=== PATIENT | female | born 1945 | race Caucasian/White ===

== ENCOUNTER 2016-06-16 16:17 | Emergency (ER) | payer MEDICARE, OTHER ==
--- NOTE | 2016-06-16 16:34 | ERPHSYRPT ---
- History of Present Illness Time Seen by Provider: 06/16/16 16:32 Source: patient, family Exam Limitations: no limitations Physician History: c/o cough, chest congestion and fever since yesterday Timing/Duration: yesterday Associated Symptoms: cough, fever Allergies/Adverse Reactions: Penicillins Allergy (Verified 06/16/16 16:31) Home Medications: Carvedilol 6.25 mg [Coreg 6.25 MG] 6.25 mg PO BID 03/18/13 [History] Allopurinol 300 mg [Zyloprim 300 mg] 300 mg PO DAILY 06/11/16 [History] Amlodipine Besylate/Benazepril [Amlodipine-Benazepril 5-20 mg] 1 each PO DAILY 06/11/16 [History] Aspirin [Aspirin EC] 81 mg PO DAILY 06/11/16 [History] Furosemide 40 mg [Lasix 40 MG] 40 mg PO DAILY 06/11/16 [History] Hydrocodone Bit/Acetaminophen [[place] 7.5-325 Tablet] 1 each PO Q6H 06/11/16 [ History] Potassium Citrate/Citric Acid [Cytra-K Crystals Packet] 1 each PO QID 06/11/16 [ History] Hx Tetanus, Diphtheria Vaccination/Date Given: Yes Hx Influenza Vaccination/Date Given: No Hx Pneumococcal Vaccination/Date Given: No - Review of Systems Constitutional: Fever, No Chills Eyes: No Symptoms Ears, Nose, & Throat: No Symptoms Respiratory: Cough, No Dyspnea Cardiac: No Chest Pain, No Edema, No Syncope Abdominal/Gastrointestinal: No Abdominal Pain, No Nausea, No Vomiting, No Diarrhea Genitourinary Symptoms: No Dysuria Musculoskeletal: No Back Pain, No Neck Pain Skin: No Rash Neurological: No Dizziness, No Focal Weakness, No Sensory Changes Psychological: No Symptoms Endocrine: No Symptoms All Other Systems: Reviewed and Negative - Past Medical History Pertinent Past Medical History: Yes Neurological History: No Pertinent History ENT History: No Pertinent History Cardiac History: Myocardial Infarction ([place]) Respiratory History: CHF Endocrine Medical History: No Pertinent History Musculoskeletal History: Osteoarthritis GI Medical History: No Pertinent History History: Other Psycho-Social History: No Pertinent History Female Reproductive Disorders: No Pertinent History Other Medical History: KIDNEY STONES,UTI - Past Surgical History Past Surgical History: Yes Neuro Surgical History: No Pertinent History Cardiac: Cardiac Catheterization Respiratory: No Pertinent History Gastrointestinal: Appendectomy, Cholecystectomy Genitourinary: Other Musculoskeletal: Joint Replacement Female Surgical History: Tubal Ligation Other Surgical History: D &C, RIGHT KNEE REPLACEMENT, TONSILLECTOMY - Social History Smoking Status: Never smoker Exposure to second hand smoke: No Alcohol Use: None Drug Use: none Patient Lives Alone: No Significant Family History: heart disease, hypertension - Female History Hx Now: No - Nursing Vital Signs Nursing Vital Signs: Initial Vital Signs Temperature 98.4 F Temperature Source Oral Pulse Rate 83 Respiratory Rate 22 Blood Pressure [] 137/69 Pain Intensity 4 - Physical Exam General Appearance: no apparent distress, alert Eye Exam: PERRL/EOMI, eyes nml inspection Ears, Nose, Throat Exam: normal ENT inspection, TMs normal, pharynx normal, moist mucous membranes Neck Exam: normal inspection, non-tender, supple, full range of motion Respiratory Exam: rhonchi, wheezing, No respiratory distress Cardiovascular Exam: regular rate/rhythm, normal heart sounds, normal peripheral pulses Gastrointestinal/Abdomen Exam: soft, normal bowel sounds, No tenderness, No mass Back Exam: normal inspection, normal range of motion, No CVA tenderness, No vertebral tenderness Extremity Exam: normal inspection, normal range of motion, pelvis stable Neurologic Exam: alert, oriented x 3, cooperative, normal mood/affect, nml cerebellar function, nml station & gait, sensation nml, No motor deficits Skin Exam: normal color, warm, dry, No rash Lymphatic Exam: No adenopathy - Course Nursing assessment & vital signs reviewed: Yes - Radiology Exams Chest X-ray Interpretation: Reviewed by me Ordered Tests: Active Orders 24 hr Category Date Time Status CHEST 2 VIEWS (PA AND LAT) Stat Exams 06/16/16 16:29 Taken CBC W DIFF Stat Lab 06/16/16 17:08 Completed CMP Stat Lab 06/16/16 17:08 Received Medication Summary Generic Name Dose Route Start Last Admin Trade Name Freq PRN Reason Stop Dose Admin Levofloxacin 500 mg 06/16/16 17:26 Levofloxacin 250mg Tablet PO 06/16/16 17:27 STAT ONE Lab/Rad Data: Laboratory Result Diagrams 06/16/16 17:08 Laboratory Results 06/16/16 Range/Units 17:08 WBC 7.9 (4.0-10.5) K/mm3 RBC 4.47 (4.1-5.4) M/mm3 Hgb 13.0 (12.0-16.0) gm/dl Hct 40.5 (35-47) % MCV 90.6 (78-100) fl MCH 29.1 (26-32) pg MCHC 32.1 (32-36) g/dl RDW 15.2 H (11.5-14.0) % Plt Count 206 (150-450) K/mm3 MPV 10.8 H (6-9.5) fl Gran % 70.6 H (36.0-66.0) % Lymphocytes % 12.7 L (24.0-44.0) % Monocytes % 13.3 H (0.0-12.0) % Eosinophils % 3.0 (0.00-5.0) % Basophils % 0.4 (0.0-0.4) % Basophils # 0.03 (0-0.4) - Progress Progress: improved Counseled pt/family regarding: lab results, diagnosis, need for follow-up, rad results - Departure Time of Disposition: 17:28 Departure Disposition: Home Clinical Impression: Bronchitis Condition: Stable Critical Care Time: No Referrals: GOPI BULLARD [Primary Care Provider] - Instructions: Bronchitis Additional Instructions: Please follow the instructions given to you. Please take your medication as prescribed if given. If symptoms recur or get worse, come back to the emergency room if you cannot reach your primary care physician, or call your primary care physician for an appointment. Again if your symptoms get worse, come back to the emergency room. Thanks for visiting emergency room, and let us take care of you. Prescriptions: Guaifenesin/Codeine Phos [Cheratussin AC Syrup] 5 ml PO Q6H #240 liquid Levofloxacin [Levaquin 500 MG Tablet] 500 mg PO QAM #10 tablet
[2016-06-16 17:11] LABS: BASOPHIL % 0.4 % (0.0-0.4); Granulocytes % 70.6 % (36.0-66.0); Lymphocytes % 12.7 % (24.0-44.0); Mean Cell Volume 90.6 fl (78-100); Mean Corpuscular Hemoglobin 29.1 pg (26-32); Mean Platelet Volume 10.8 fl (6-9.5); Monocytes % 13.3 % (0.0-12.0); Platelet Count 206 K/mm3 (150-450); Red Blood Count 4.47 M/mm3 (4.1-5.4); Red Cell Distribution Width 15.2 % (11.5-14.0); White Blood Count 7.9 K/mm3 (4.0-10.5)
[2016-06-16 17:15] VITALS: BP 137/69; PULSE 83; O2SAT 95
[2016-06-16] MEDS ORDERED: Levofloxacin 250MG Tablet PO ONE (17:26)
[2016-06-16 17:31] LABS: ALBUMIN 3.7 g/dL (3.4-5.0); ANION GAP 15.9 MEQ/L (5-15); BILIRUBIN,TOTAL 0.7 mg/dL (0.2-1.0); Carbon Dioxide 26.2 mEq/L (21-32); Potassium 3.8 mEq/L (3.5-5.1); Total Protein 7.7 gm/dL (6.4-8.2)
[2016-06-16] MEDS ORDERED: Levofloxacin 250MG Tablet ONE (17:33)
--- NOTE | 2016-06-16 19:32 | XRAY ---
Indication: Cough, congestion, and fever. Comparison: April 10, 2015. PA/lateral chest again hyperinflated with lingular infiltrate versus atelectasis. Remaining lungs clear. Heart remains borderline enlarged. Bony thorax intact again with osteopenia, degenerative changes, and remote-appearing T5/T6/T7 compression fractures. Impression: Lingular infiltrate/atelectasis. Correlate clinically. Stable incidental chronic findings.
== END 2016-06-16 17:40 | disposition home or self-care (01) ==
LOC: ED 16:17
DX: J40 Bronchitis, not specified as acute or chronic (principal); R05 Cough; R09.89 Other specified symptoms and signs involving the circulatory and respiratory systems; R50.9 Fever, unspecified; Z79.899 Other long term (current) drug therapy; I21.3 ST elevation (STEMI) myocardial infarction of unspecified site; I50.9 Heart failure, unspecified
CPT/HCPCS: 36415; 71020; 80053; 85025; 99283; 99284; A9270-GY

== ENCOUNTER 2016-11-01 22:27 | Emergency (ER) | payer MEDICARE, OTHER ==
[2016-11-01] MEDS ORDERED: Lasix 40 MG/4 ML IM ONE (22:35)
--- NOTE | 2016-11-01 22:42 | ERPHSYRPT ---
- History of Present Illness Time Seen by Provider: 11/01/16 22:36 Physician History: 71-year-old female came to the emergency room complaining of worsening pedal edema for last 1-2 days. Patient is recently diagnosed with pulmonary hypertension with right sided ventricular patient about 58 mmHg and was started on Revatio and Lasix 40 mg daily. Patient did not take any Lasix and started revatio couple days ago. Since then. Patient pedal edema has worsened. Patient denies any chest pain, nausea, vomiting or shortness of breath. Timing/Duration: today Associated Symptoms: ankle swelling International travel in last 2 weeks: No Allergies/Adverse Reactions: Penicillins Allergy (Verified 11/01/16 22:35) Home Medications: Carvedilol 6.25 mg [Coreg 6.25 MG] 6.25 mg PO BID 03/18/13 [History] Allopurinol 300 mg [Zyloprim 300 mg] 300 mg PO DAILY 06/11/16 [History] Amlodipine Besylate/Benazepril [Amlodipine-Benazepril 5-20 mg] 1 each PO DAILY 06/11/16 [History] Aspirin [Aspirin EC] 81 mg PO DAILY 06/11/16 [History] Furosemide 40 mg [Lasix 40 MG] 40 mg PO DAILY 06/11/16 [History] Hydrocodone Bit/Acetaminophen [[place] 7.5-325 Tablet] 1 each PO Q6H 06/11/16 [ History] Potassium Citrate/Citric Acid [Cytra-K Crystals Packet] 1 each PO QID 06/11/16 [ History] Naproxen [EC-Naprosyn] 500 mg PO BID 10/28/16 [History] Ropinirole HCl [Requip] 1 mg PO 10/28/16 [History] Sildenafil Citrate [Revatio] 1 tab PO DAILY 11/01/16 [History] Hx Tetanus, Diphtheria Vaccination/Date Given: Yes Hx Influenza Vaccination/Date Given: No Hx Pneumococcal Vaccination/Date Given: No - Review of Systems Constitutional: No Fever, No Chills Eyes: No Symptoms Ears, Nose, & Throat: No Symptoms Respiratory: Dyspnea on Exertion (OLIVEIRA), No Cough, No Dyspnea Cardiac: Other (bilateral pedal oedema), No Chest Pain, No Edema, No Syncope Abdominal/Gastrointestinal: No Abdominal Pain, No Nausea, No Vomiting, No Diarrhea Genitourinary Symptoms: No Dysuria Musculoskeletal: No Back Pain, No Neck Pain Skin: No Rash Neurological: No Dizziness, No Focal Weakness, No Sensory Changes Psychological: No Symptoms Endocrine: No Symptoms All Other Systems: Reviewed and Negative - Past Medical History Pertinent Past Medical History: Yes Neurological History: No Pertinent History ENT History: No Pertinent History Cardiac History: Myocardial Infarction ([place]) Respiratory History: CHF Endocrine Medical History: No Pertinent History Musculoskeletal History: Osteoarthritis GI Medical History: No Pertinent History History: Other Psycho-Social History: No Pertinent History Female Reproductive Disorders: No Pertinent History Other Medical History: KIDNEY STONES,UTI - Past Surgical History Past Surgical History: Yes Neuro Surgical History: No Pertinent History Cardiac: Cardiac Catheterization Respiratory: No Pertinent History Gastrointestinal: Appendectomy, Cholecystectomy Genitourinary: Other Musculoskeletal: Joint Replacement Female Surgical History: Tubal Ligation Other Surgical History: D &C, RIGHT KNEE REPLACEMENT, TONSILLECTOMY - Social History Smoking Status: Never smoker Exposure to second hand smoke: No Alcohol Use: None Drug Use: none Patient Lives Alone: No Significant Family History: heart disease, hypertension - Female History Hx Now: No - Physical Exam General Appearance: no apparent distress, alert Eye Exam: PERRL/EOMI Neck Exam: normal inspection, supple Cardiovascular/Chest Exam: normal heart sounds, regular rate/rhythm Abdominal/Gastrointestinal Exam: soft, No tenderness, No distention, No mass Extremity Exam: non-tender, normal range of motion, normal inspection, no calf tenderness, no pedal edema, pedal edema, No calf tenderness Neurologic Exam: alert, oriented x 3, cooperative, chips screen tender II-XII nml as tested, sensation nml, No motor deficits Skin Exam: normal color, warm, No dry SpO2 Interpretation: borderline oxygenation SpO2: 95 - Course Nursing assessment & vital signs reviewed: Yes Ordered Tests: Medication Summary Discontinued Medications Generic Name Dose Route Start Last Admin Trade Name Freq PRN Reason Stop Dose Admin Furosemide 40 mg 11/01/16 22:35 Lasix 40 Mg/4 Ml IM 11/01/16 22:36 STAT ONE - Progress Progress: improved Air Movement: good Progress Note: 11/01/16 22:39 Patient was given Lasix 40 mg intramuscularly 1. Patient is advised to start Lasix from tomorrow morning. Patient is also advised to use oxygen. Patient daughter was also present in the room. They both understood. Verbalize instructions. If symptoms get worse. Advised to come back to the emergency room. Blood Culture(s) Obtained: No Antibiotics given: No - Departure Time of Disposition: 22:45 Departure Disposition: Home Clinical Impression: Pedal edema, Pulmonary hypertension Condition: Stable Critical Care Time: No Referrals: GOPI BULLARD [Primary Care Provider] - Additional Instructions: You were given Lasix 40 mg intramuscularly 1. you are advised to start revatio andLasix from tomorrow morning. Patient is also advised to use oxygen. Patient daughter was also present in the room. They both understood. Verbalize instructions. If symptoms get worse. Advised to come back to the emergency room. Please follow the instructions given to you. Please take your medication as prescribed if given. If symptoms recur or get worse, come back to the emergency room if you cannot reach your primary care physician, or call your primary care physician for an appointment. Again if your symptoms get worse, come back to the emergency room. Thanks for visiting emergency room, and let us take care of you.
[2016-11-01 22:44] VITALS: BP 155/70
[2016-11-01] MEDS ORDERED: Lasix 40 MG/4 ML ONE (22:44)
[2016-11-01 22:58] VITALS: PULSE 81; O2SAT 94
== END 2016-11-01 23:00 | disposition home or self-care (01) ==
LOC: ED 22:27
DX: R60.9 Edema, unspecified (principal); I27.2 Other secondary pulmonary hypertension; Z79.899 Other long term (current) drug therapy; I25.2 Old myocardial infarction; I50.9 Heart failure, unspecified
CPT/HCPCS: 99284; J1940

== ENCOUNTER 2018-07-29 10:05 | Day surgery (SDC) | payer MEDICARE, OTHER ==
[2011-09-28 09:51] VITALS: BP 180/94
[2018-07-29] MEDS ORDERED: Depo-Medrol 40 MG/ML IM ONE (10:06)
[2018-07-29] MEDS ORDERED: Marcaine 0.5% SDV 10 ML IJ ONE (10:06)
[2018-07-29] MEDS ORDERED: DIPRIVAN 200 MG/20 ML IV ONE (11:33)
[2018-07-29] MEDS ORDERED: Ketamine HCl 50 MG/ML ONE (11:33)
--- NOTE | 2018-07-29 13:04 | XRAY ---
Indication: Right shoulder injection. Intraoperative fluoroscopy was provided for 9 seconds. Single digital spot image submitted for interpretation demonstrates needle tip projecting right glenohumeral joint superiorly. Small amount of contrast injected for needle tip placement. Correlate with intraoperative findings/report.
--- NOTE | 2018-07-29 13:08 | XRAY ---
9 seconds of fluoroscopy was used in surgery for right intra-articular shoulder injection.
[2018-07-29] MEDS ORDERED: Lactated Ringers 1,000 ML IV ONE (13:34)
== END 2018-07-29 12:03 | disposition home or self-care (01) ==
LOC: SDC-PAIN 10:05
PROVIDERS: ATTEND Psychiatry & Neurology Pain Medicine
DX: M19.012 Primary osteoarthritis, left shoulder (principal); I27.20 Pulmonary hypertension, unspecified; I51.9 Heart disease, unspecified
CPT/HCPCS: 20610; 73030; 77002; J1030; J2704; Q9966

== ENCOUNTER 2018-09-09 11:27 | Day surgery (SDC) | payer MEDICARE, OTHER ==
[2011-09-28 09:51] VITALS: BP 180/94
[2018-09-09] MEDS ORDERED: Marcaine 0.5% SDV 10 ML IJ ONE (11:28)
[2018-09-09] MEDS ORDERED: Depo-Medrol 40 MG/ML IM ONE (11:28)
[2018-09-09] MEDS ORDERED: Ketamine HCl 50 MG/ML ONE (12:39)
[2018-09-09] MEDS ORDERED: DIPRIVAN 200 MG/20 ML IV ONE (12:39)
--- NOTE | 2018-09-09 15:00 | XRAY ---
Indication: Left knee injection. Intraoperative fluoroscopy was provided for 7 seconds. 2 digital spot images submitted for interpretation demonstrates needle tip projecting over the left femur intercondylar notch. Small amount of contrast injected for needle tip placement. Correlate with intraoperative findings/report.
--- NOTE | 2018-09-09 15:14 | XRAY ---
7 seconds fluoroscopy time in surgery for left intra-articular knee injection.
[2018-09-09] MEDS ORDERED: Lactated Ringers 1,000 ML IV ONE (16:45)
== END 2018-09-09 13:17 | disposition home or self-care (01) ==
LOC: SDC-PAIN 11:27
PROVIDERS: ATTEND Psychiatry & Neurology Pain Medicine
DX: M17.12 Unilateral primary osteoarthritis, left knee (principal); I27.20 Pulmonary hypertension, unspecified; E78.00 Pure hypercholesterolemia, unspecified; Z79.899 Other long term (current) drug therapy
CPT/HCPCS: 20610; 73560; 77002; J1030; J2704; Q9966

== ENCOUNTER 2018-11-25 10:05 | Day surgery (SDC) | payer MEDICARE, OTHER ==
[2011-09-28 09:51] VITALS: BP 180/94
[2018-11-25] MEDS ORDERED: Marcaine 0.5% SDV 10 ML IJ ONE (10:06)
[2018-11-25] MEDS ORDERED: Depo-Medrol 40 MG/ML IM ONE (10:06)
[2018-11-25] MEDS ORDERED: Ketamine HCl 50 MG/ML ONE (11:10)
[2018-11-25] MEDS ORDERED: DIPRIVAN 200 MG/20 ML IV ONE (11:10)
--- NOTE | 2018-11-25 14:17 | XRAY ---
Indication: Right shoulder injection. Intraoperative fluoroscopy was provided for 10 seconds. Single digital spot image submitted for interpretation demonstrates needle tip projecting over the right glenohumeral joint superiorly. Small amount of contrast injected for needle tip placement. Correlate with intraoperative findings/report.
--- NOTE | 2018-11-25 14:19 | XRAY ---
10 seconds fluoroscopy time in surgery for right shoulder injection.
[2018-11-25] MEDS ORDERED: Lactated Ringers 1,000 ML IV ONE (15:24)
== END 2018-11-25 11:32 | disposition home or self-care (01) ==
LOC: SDC-PAIN 10:05
PROVIDERS: ATTEND Psychiatry & Neurology Pain Medicine
DX: M19.011 Primary osteoarthritis, right shoulder (principal); I27.20 Pulmonary hypertension, unspecified; I10 Essential (primary) hypertension; I51.9 Heart disease, unspecified; Z79.899 Other long term (current) drug therapy
CPT/HCPCS: 20610; 73030; 77002; J1030; J2704; Q9966

== ENCOUNTER 2019-03-10 12:39 | Day surgery (SDC) | payer MEDICARE, OTHER ==
[2011-09-28 09:51] VITALS: BP 180/94
[2019-03-10] MEDS ORDERED: Sodium Chloride 0.9(Preservative Free) 10 ML IJ ONE (12:40)
[2019-03-10] MEDS ORDERED: Depo-Medrol 40 MG/ML IM ONE (12:40)
[2019-03-10] MEDS ORDERED: DIPRIVAN 200 MG/20 ML IV ONE (14:03)
[2019-03-10] MEDS ORDERED: Ketamine HCl 50 MG/ML ONE (14:03)
[2019-03-10] MEDS ORDERED: KEFZOL 1 GM ONE (14:03)
[2019-03-10] MEDS ORDERED: Lactated Ringers 1,000 ML IV ONE (15:42)
--- NOTE | 2019-03-10 16:29 | XRAY ---
Indication: Left L4-S1 ANGI. Intraoperative fluoroscopy was provided for 39 seconds. 4 digital spot images submitted for interpretation demonstrates posterior needle tips projecting over the expected course of the left L4 and L5 nerve roots. Small amount of contrast injected for needle tip placement. Correlate with intraoperative findings/report.
--- NOTE | 2019-03-10 16:44 | XRAY ---
39 seconds fluoroscopy time in surgery for left L4-S1 transforaminal ANGI.
== END 2019-03-10 14:37 | disposition home or self-care (01) ==
LOC: SDC-PAIN 12:39
PROVIDERS: ATTEND Psychiatry & Neurology Pain Medicine
DX: M54.16 Radiculopathy, lumbar region (principal); I10 Essential (primary) hypertension; I27.20 Pulmonary hypertension, unspecified; E78.00 Pure hypercholesterolemia, unspecified; I51.9 Heart disease, unspecified; Z79.899 Other long term (current) drug therapy
CPT/HCPCS: 64483; 64484; 72100; 77003; 99100; J0690; J1030; J2704; Q9966

== ENCOUNTER 2019-03-24 11:39 | Day surgery (SDC) | payer MEDICARE, OTHER ==
[2011-09-28 09:51] VITALS: BP 180/94
[2019-03-24] MEDS ORDERED: Sodium Chloride 0.9(Preservative Free) 10 ML IJ ONE (11:40)
[2019-03-24] MEDS ORDERED: Depo-Medrol 40 MG/ML IM ONE (11:40)
[2019-03-24] MEDS ORDERED: DIPRIVAN 200 MG/20 ML IV ONE (12:44)
[2019-03-24] MEDS ORDERED: Ketamine HCl 50 MG/ML ONE (12:45)
[2019-03-24] MEDS ORDERED: TORAdol 30 mg Injection ONE (13:05)
--- NOTE | 2019-03-24 14:11 | XRAY ---
Indication: Left L4-S1 transforaminal ANGI. Intraoperative fluoroscopy was provided for 31 seconds. 4 digital spot images submitted for interpretation demonstrates posterior needle tips projecting over the expected course of the left L4 and L5 nerve roots. Small amount of contrast injected for needle tip placement. Correlate with intraoperative findings/report.
--- NOTE | 2019-03-24 14:31 | XRAY ---
31 seconds fluoroscopy time in surgery for left L4-S1 transforaminal ANGI.
[2019-03-24] MEDS ORDERED: Lactated Ringers 1,000 ML IV ONE (14:52)
== END 2019-03-24 13:21 | disposition home or self-care (01) ==
LOC: SDC-PAIN 11:39
PROVIDERS: ATTEND Psychiatry & Neurology Pain Medicine
DX: M54.16 Radiculopathy, lumbar region (principal); I10 Essential (primary) hypertension; I27.20 Pulmonary hypertension, unspecified; Z79.899 Other long term (current) drug therapy; E78.00 Pure hypercholesterolemia, unspecified
CPT/HCPCS: 64484; 64493; 72100; 77003; 99100; J1030; J1885; J2704; Q9966

== ENCOUNTER 2019-04-14 10:29 | Day surgery (SDC) | payer MEDICARE, OTHER ==
[2011-09-28 09:51] VITALS: BP 180/94
[2019-04-14] MEDS ORDERED: Depo-Medrol 40 MG/ML IM ONE (10:30)
[2019-04-14] MEDS ORDERED: Sodium Chloride 0.9(Preservative Free) 10 ML IJ ONE (10:30)
[2019-04-14] MEDS ORDERED: Xylocaine 1% Vial 30 ML PF IJ ONE (10:30)
[2019-04-14] MEDS ORDERED: DIPRIVAN 200 MG/20 ML IV ONE (11:52)
[2019-04-14] MEDS ORDERED: Ketamine HCl 50 MG/ML ONE (11:52)
--- NOTE | 2019-04-14 13:07 | XRAY ---
Indication: Caudal ANGI. Intraoperative fluoroscopy was provided for 20 seconds. 2 digital spot images submitted for interpretation demonstrates posterior midline needle tip projecting mid to distal sacral spinal canal. Small amount of contrast injected for needle tip placement. Correlate with intraoperative findings/report.
--- NOTE | 2019-04-14 13:07 | XRAY ---
20 seconds fluoroscopy time in surgery for caudal ANGI.
[2019-04-14] MEDS ORDERED: Lactated Ringers 1,000 ML IV ONE (13:41)
== END 2019-04-14 12:20 | disposition home or self-care (01) ==
LOC: SDC-PAIN 10:29
PROVIDERS: ATTEND Psychiatry & Neurology Pain Medicine
DX: M54.16 Radiculopathy, lumbar region (principal); M53.3 Sacrococcygeal disorders, not elsewhere classified; I27.20 Pulmonary hypertension, unspecified; I10 Essential (primary) hypertension; E78.00 Pure hypercholesterolemia, unspecified; Z79.899 Other long term (current) drug therapy
CPT/HCPCS: 62323; 72220; 77003; J1030; J2001; J2704; Q9966

== ENCOUNTER 2019-10-20 12:53 | Day surgery (SDC) | payer MEDICARE, OTHER ==
[2011-09-28 09:51] VITALS: BP 180/94
[~2019-10-20 12:53] MED LIST: DIPRIVAN 200 MG/20 ML IV ONE; Ketamine HCl 50 MG/ML ONE
[2019-10-20] MEDS ORDERED: BUPIVACAINE 0.5% VIAL IJ ONE (12:54)
[2019-10-20] MEDS ORDERED: Depo-Medrol 40 MG/ML IM ONE (12:54)
--- NOTE | 2019-10-20 14:58 | XRAY ---
Indication: Right SI joint injection. Intraoperative fluoroscopy was provided for 8 seconds. 2 digital spot images submitted for interpretation demonstrates posterior needle tip projecting over the inferior right SI joint. Correlate with intraoperative findings/report.
[2019-10-20] MEDS ORDERED: Lactated Ringers 1,000 ML IV ONE (15:12)
--- NOTE | 2019-10-21 10:15 | XRAY ---
8 seconds fluoroscopy time in surgery for right SI joint injection.
== END 2019-10-20 14:45 | disposition home or self-care (01) ==
LOC: SDC-PAIN 12:53
PROVIDERS: ATTEND Psychiatry & Neurology Pain Medicine
DX: M46.1 Sacroiliitis, not elsewhere classified (principal); I27.20 Pulmonary hypertension, unspecified; I10 Essential (primary) hypertension; Z86.79 Personal history of other diseases of the circulatory system; Z79.899 Other long term (current) drug therapy
CPT/HCPCS: 72020; 77002; G0260; 27096; 99100; J1030; J2704

== ENCOUNTER 2019-11-17 11:55 | Day surgery (SDC) | payer MEDICARE, OTHER ==
[2011-09-28 09:51] VITALS: BP 180/94
[2019-11-17] MEDS ORDERED: Depo-Medrol 40 MG/ML IM ONE (11:56)
[2019-11-17] MEDS ORDERED: BUPIVACAINE 0.5% VIAL IJ ONE (11:56)
[2019-11-17] MEDS ORDERED: Lactated Ringers 1,000 ML IV ONE (13:46)
--- NOTE | 2019-11-17 14:19 | XRAY ---
9 seconds fluoroscopy time in surgery for intra-articular injection of the left knee.
--- NOTE | 2019-11-17 14:20 | XRAY ---
Indication: Left knee injection. Intraoperative fluoroscopy provided for 9 seconds. Single digital spot image submitted for interpretation demonstrates needle tip projecting over the left femur intercondylar notch. Small amount of contrast injected for needle tip placement. Correlate with intraoperative findings/report.
== END 2019-11-17 14:11 | disposition home or self-care (01) ==
LOC: SDC-PAIN 11:55
PROVIDERS: ATTEND Psychiatry & Neurology Pain Medicine
DX: M17.12 Unilateral primary osteoarthritis, left knee (principal); I27.20 Pulmonary hypertension, unspecified; I10 Essential (primary) hypertension; I51.9 Heart disease, unspecified; E78.00 Pure hypercholesterolemia, unspecified; Z79.899 Other long term (current) drug therapy
CPT/HCPCS: 73560; 77002; J1030; J2704

== ENCOUNTER 2020-01-28 13:12 | Inpatient (IN) | payer MEDICARE, OTHER ==
[2020-01-28] MEDS ORDERED: Sodium Chloride 0.9% 1000 ML 1,000 ML IV STA ×2 (13:17→15:36)
--- NOTE | 2020-01-28 13:17 | ERPHSYRPT ---
- History of Present Illness Time Seen by Provider: 01/28/20 13:17 Historian: patient, EMS Exam Limitations: no limitations Physician History: This is an obese 74-year-old white female who has a history of coronary artery disease, pulmonary hypertension and obesity and presents with weakness and fatigue for 5 days. She became more concerned of the fatigue since yesterday when she has had multiple watery diarrheal stools. Patient's track sweeper is Dr. Jackson and her seed service advisor is Dr. Márquez. Patient states that her normal room air oxygen saturation level is 94 to 96%. Patient has no known exposure to anyone with COVID-19 symptoms. Patient has no chest pain. Patient has no abdominal pain. She has had no nausea vomiting or diarrhea. She has had no fevers or chills. Patient denies myalgias and arthralgias. Timing/Duration: day(s) (5) Activities at Onset: activity Severity of Pain-Max: none Severity of Pain-Current: none Modifying Factors: Improves With: nothing Associated Symptoms: diarrhea, nausea, shortness of breath (Mild today), No vomiting Previous symptoms: no prior history Allergies/Adverse Reactions: Penicillins Allergy (Verified 01/28/20 13:30) Home Medications: Carvedilol 6.25 mg [Coreg 6.25 MG] 6.25 mg PO BID 03/18/13 [History] Allopurinol 300 mg [Zyloprim 300 mg] 300 mg PO DAILY 06/11/16 [History] Aspirin [Aspirin EC] 81 mg PO DAILY 06/11/16 [History] Furosemide 40 mg [Lasix 40 MG] 40 mg PO DAILY 06/11/16 [History] Hydrocodone Bit/Acetaminophen [[place] 7.5-325 Tablet] 1 each PO Q6-8HPRN PRN 06/11/16 [History] Potassium Citrate/Citric Acid [Cytra-K Crystals Packet] 1 each PO QID 06/11/16 [History] Naproxen [EC-Naprosyn] 500 mg PO BID 10/28/16 [History] Ropinirole HCl [Requip] 1 mg PO 10/28/16 [History] Sildenafil Citrate [Revatio] 1 tab PO DAILY 11/01/16 [History] Benazepril/Hydrochlorothiazide [Benazepril-Hctz 10-12.5 mg Tab] 1 each PO DAILY 04/21/17 [History] Hx Tetanus, Diphtheria Vaccination/Date Given: Yes Hx Influenza Vaccination/Date Given: No Hx Pneumococcal Vaccination/Date Given: No Travel Risk - International Travel Have you traveled outside of the country in past 3 weeks: No - Coronavirus Screening Are you exhibiting any of the following symptoms?: Yes Symptoms: Shortness of Breath, Vomiting/Diarrhea Close contact with a COVID-19 positive Pt in past 14-21 Days: No - Review of Systems Constitutional: Fatigue, Weakness Eyes: No Symptoms Ears, Nose, & Throat: No Symptoms Respiratory: Dyspnea on Exertion (OLIVEIRA) (Held today) Cardiac: No Symptoms Abdominal/Gastrointestinal: Nausea, Diarrhea Genitourinary Symptoms: No Symptoms Musculoskeletal: No Symptoms Skin: No Symptoms Neurological: No Symptoms Psychological: No Symptoms Endocrine: No Symptoms Hematologic/Lymphatic: No Symptoms Immunological/Allergic: No Symptoms All Other Systems: Reviewed and Negative - Past Medical History Pertinent Past Medical History: Yes Neurological History: No Pertinent History ENT History: No Pertinent History Cardiac History: Myocardial Infarction (MS) Respiratory History: CHF Endocrine Medical History: No Pertinent History Musculoskeletal History: Osteoarthritis GI Medical History: No Pertinent History History: Other Psycho-Social History: No Pertinent History Female Reproductive Disorders: No Pertinent History Other Medical History: KIDNEY STONES,UTI - Past Surgical History Past Surgical History: Yes Neuro Surgical History: No Pertinent History Cardiac: Cardiac Catheterization Respiratory: No Pertinent History Gastrointestinal: Appendectomy, Cholecystectomy Genitourinary: Other Musculoskeletal: Joint Replacement Female Surgical History: Tubal Ligation Other Surgical History: D &C, RIGHT KNEE REPLACEMENT, TONSILLECTOMY - Social History Smoking Status: Never smoker Exposure to second hand smoke: No Alcohol Use: None Drug Use: none Patient Lives Alone: No Significant Family History: heart disease, hypertension - Nursing Vital Signs Nursing Vital Signs: Initial Vital Signs Temperature 98.3 F 01/28/20 13:14 Pulse Rate 68 01/28/20 13:14 Respiratory Rate 20 01/28/20 13:14 Blood Pressure 110/52 01/28/20 13:14 O2 Sat by Pulse Oximetry 95 01/28/20 13:14 Pain Scale Pain Intensity 0 - Physical Exam General Appearance: no apparent distress, alert, anxiety, obese Eye Exam: PERRL/EOMI, eyes nml inspection Ears, Nose, Throat Exam: normal ENT inspection, moist mucous membranes Neck Exam: normal inspection, non-tender, supple, full range of motion Respiratory Exam: normal breath sounds, lungs clear, airway intact, No chest tenderness, No respiratory distress Cardiovascular Exam: regular rate/rhythm, normal heart sounds, normal peripheral pulses Gastrointestinal/Abdomen Exam: soft, normal bowel sounds, No tenderness, No guarding, No rebound Pelvic Exam: not done Rectal Exam: not done Back Exam: normal inspection, normal range of motion, No CVA tenderness, No vertebral tenderness Extremity Exam: normal inspection, normal range of motion, pelvis stable Neurologic Exam: alert, oriented x 3, cooperative, teleprinter II-XII nml as tested, normal mood/affect, nml cerebellar function, nml station & gait, sensation nml Skin Exam: normal color, warm, dry Lymphatic Exam: No adenopathy SpO2 Interpretation: normal O2 Delivery: Room Air - Course Nursing assessment & vital signs reviewed: Yes EKG Interpreted by Me: RATE (69), Sinus Rhythm, Left [place] Deviation (New onset), Other (Comparison EKG on 01/11/2020 no new changes other than left axis deviation.) Ordered Tests: Active Orders 24 hr Category Date Time Status EKG-ER Only STAT Care 01/28/20 13:17 Active IV Insertion STAT Care 01/28/20 13:17 Active CHEST 1 VIEW (PORTABLE) Stat Exams 01/28/20 14:46 Completed AMYLASE Stat Lab 01/28/20 13:40 Completed BLOOD CULTURE Stat Lab 01/28/20 13:45 Received CBC W DIFF Stat Lab 01/28/20 13:40 Completed CMP Stat Lab 01/28/20 13:40 Completed D-DIMER QUANTITATIVE Stat Lab 01/28/20 14:46 Completed INFLUENZA A+B CECIL Stat Lab 01/28/20 13:40 Completed LIPASE Stat Lab 01/28/20 13:40 Completed Lactic Acid Stat Lab 01/28/20 13:17 Completed MAG [MAGNESIUM] Stat Lab 01/28/20 13:40 Completed Manual Differential NC Stat Lab 01/28/20 13:40 Completed Heard Screen Stat Lab 01/28/20 13:40 Completed TROPONIN Q3H Lab 01/28/20 13:40 Completed TROPONIN Q3H Lab 01/28/20 18:31 Received TROPONIN Q3H Lab 01/28/20 19:30 Ordered TROPONIN Q3H Lab 01/28/20 22:30 Ordered TROPONIN Q3H Lab 01/29/20 01:30 Ordered UA W/RFX UR CULTURE Stat Lab 01/28/20 17:28 Completed Medication Summary Discontinued Medications Generic Name Dose Route Start Last Admin Trade Name Marline PRN Reason Stop Dose Admin Acetaminophen 650 mg 01/28/20 17:27 01/28/20 17:37 Tylenol 325 Mg PO 01/28/20 17:28 650 mg STAT STA Administration Acetaminophen Confirm 01/28/20 17:36 Tylenol 325 Mg Administered 01/28/20 17:37 Dose 650 mg .ROUTE .STK-MED ONE Sodium Chloride 1,000 mls @ 999 mls/hr 01/28/20 13:17 01/28/20 16:18 Sodium Chloride 0.9% 1000 Ml IV 01/28/20 14:17 Infused .Q1H1M STA Infusion Sodium Chloride Confirm 01/28/20 13:25 Sodium Chloride 0.9% 1000 Ml Administered 01/28/20 13:26 Dose 1,000 mls @ ud .ROUTE .STK-MED ONE Sodium Chloride 1,000 mls @ 999 mls/hr 01/28/20 15:36 01/28/20 17:41 Sodium Chloride 0.9% 1000 Ml IV 01/28/20 16:36 Infused .Q1H1M STA Infusion Sodium Chloride Confirm 01/28/20 16:19 Sodium Chloride 0.9% 1000 Ml Administered 01/28/20 16:20 Dose 1,000 mls @ ud .ROUTE .STK-MED ONE Lab/Rad Data: Laboratory Result Diagrams 01/28/20 13:40 01/28/20 13:40 Laboratory Results 01/28/20 01/28/20 01/28/20 Range/Units 17:28 14:46 13:40 WBC (4.0-10.5) K/mm3 RBC (4.1-5.4) M/mm3 Hgb (12.0-16.0) gm/dl Hct (35-47) % MCV (78-100) fl MCH (26-32) pg MCHC (32-36) g/dl RDW (11.5-14.0) % Plt Count (150-450) K/mm3 MPV (7.5-11.0) fl Absolute Granulocytes (1.4-6.9) Segmented Neutrophils (36.0-66.0) % Band Neutrophils (0.0-2.0) % Lymphocytes (Manual) (24-44) % Monocytes (Manual) (0.0-12.0) % Platelet Estimate (NORMAL) RBC Morphology D-Dimer 363 (215-500) ng/mL Sodium (137-145) mmol/L Potassium (3.5-5.1) mmol/L Chloride (98-107) mmol/L Carbon Dioxide (22-30) mmol/L Anion Gap (5-15) MEQ/L BUN (7-17) mg/dL Creatinine (0.52-1.04) mg/dL Estimated GFR ML/MIN Glucose (74-106) mg/dL Lactic Acid (0.4-2.0) Calcium (8.4-10.2) mg/dL Magnesium (1.6-2.3) mg/dL Total Bilirubin (0.2-1.3) mg/dL AST (14-36) U/L ALT (0-35) U/L Alkaline Phosphatase (38-126) U/L Troponin I (0.000-0.034) ng/mL Serum Total Protein (6.3-8.2) g/dL Albumin (3.5-5.0) g/dL Amylase (30-110) U/L Lipase (23-300) U/L Urine Color YELLOW (YELLOW) Urine Appearance CLOUDY (CLEAR) Urine pH 5.0 (5-6) Ur Specific [place] 1.016 (1.005-1.025) Urine Protein NEGATIVE (Negative) Urine Ketones NEGATIVE (NEGATIVE) Urine Blood NEGATIVE (0-5) Kwasi/ul Urine Nitrite NEGATIVE (NEGATIVE) Urine Bilirubin NEGATIVE (NEGATIVE) Urine Urobilinogen NEGATIVE (0-1) mg/dL Ur Leukocyte Esterase NEGATIVE (NEGATIVE) Urine WBC (Auto) 3-5 (0-5) /HPF Urine RBC (Auto) NONE (0-2) /HPF U Epithel Cells (Auto) RARE (FEW) /HPF Urine Bacteria (Auto) RARE (NEGATIVE) /HPF Urine Mucus (Auto) SLIGHT (NEGATIVE) /HPF Urine Culture Reflexed NO (NO) Urine Glucose NEGATIVE (NEGATIVE) mg/dL Monoscreen NEGATIVE (Negative) Influenza Type A Ag (NEGATIVE) Influenza Type B Ag (NEGATIVE) 01/28/20 01/28/20 01/28/20 Range/Units 13:40 13:40 13:40 WBC (4.0-10.5) K/mm3 RBC (4.1-5.4) M/mm3 Hgb (12.0-16.0) gm/dl Hct (35-47) % MCV (78-100) fl MCH (26-32) pg MCHC (32-36) g/dl RDW (11.5-14.0) % Plt Count (150-450) K/mm3 MPV (7.5-11.0) fl Absolute Granulocytes (1.4-6.9) Segmented Neutrophils (36.0-66.0) % Band Neutrophils (0.0-2.0) % Lymphocytes (Manual) (24-44) % Monocytes (Manual) (0.0-12.0) % Platelet Estimate (NORMAL) RBC Morphology D-Dimer (215-500) ng/mL Sodium (137-145) mmol/L Potassium (3.5-5.1) mmol/L Chloride (98-107) mmol/L Carbon Dioxide (22-30) mmol/L Anion Gap (5-15) MEQ/L BUN (7-17) mg/dL Creatinine (0.52-1.04) mg/dL Estimated GFR ML/MIN Glucose (74-106) mg/dL Lactic Acid (0.4-2.0) Calcium (8.4-10.2) mg/dL Magnesium 1.9 (1.6-2.3) mg/dL Total Bilirubin (0.2-1.3) mg/dL AST (14-36) U/L ALT (0-35) U/L Alkaline Phosphatase (38-126) U/L Troponin I < 0.012 (0.000-0.034) ng/mL Serum Total Protein (6.3-8.2) g/dL Albumin (3.5-5.0) g/dL Amylase (30-110) U/L Lipase (23-300) U/L Urine Color (YELLOW) Urine Appearance (CLEAR) Urine pH (5-6) Ur Specific [place] (1.005-1.025) Urine Protein (Negative) Urine Ketones (NEGATIVE) Urine Blood (0-5) Kwasi/ul Urine Nitrite (NEGATIVE) Urine Bilirubin (NEGATIVE) Urine Urobilinogen (0-1) mg/dL Ur Leukocyte Esterase (NEGATIVE) Urine WBC (Auto) (0-5) /HPF Urine RBC (Auto) (0-2) /HPF U Epithel Cells (Auto) (FEW) /HPF Urine Bacteria (Auto) (NEGATIVE) /HPF Urine Mucus (Auto) (NEGATIVE) /HPF Urine Culture Reflexed (NO) Urine Glucose (NEGATIVE) mg/dL Monoscreen (Negative) Influenza Type A Ag NEGATIVE (NEGATIVE) Influenza Type B Ag NEGATIVE (NEGATIVE) 01/28/20 01/28/20 01/28/20 Range/Units 13:40 13:40 13:17 WBC 7.3 (4.0-10.5) K/mm3 RBC 3.44 L (4.1-5.4) M/mm3 Hgb 10.0 L (12.0-16.0) gm/dl Hct 32.5 L (35-47) % MCV 94.5 (78-100) fl MCH 29.1 (26-32) pg MCHC 30.8 L (32-36) g/dl RDW 16.7 H (11.5-14.0) % Plt Count 181 (150-450) K/mm3 MPV 10.4 (7.5-11.0) fl Absolute Granulocytes 6.03 (1.4-6.9) Segmented Neutrophils 65 (36.0-66.0) % Band Neutrophils 18 H (0.0-2.0) % Lymphocytes (Manual) 16 L (24-44) % Monocytes (Manual) 1 (0.0-12.0) % Platelet Estimate NORMAL (NORMAL) RBC Morphology NORMAL D-Dimer (215-500) ng/mL Sodium 139 (137-145) mmol/L Potassium 4.0 (3.5-5.1) mmol/L Chloride 105 (98-107) mmol/L Carbon Dioxide 26 (22-30) mmol/L Anion Gap 11.9 (5-15) MEQ/L BUN 39 H (7-17) mg/dL Creatinine 2.06 H (0.52-1.04) mg/dL Estimated GFR 25.0 ML/MIN Glucose 118 H (74-106) mg/dL Lactic Acid 1.4 (0.4-2.0) Calcium 8.9 (8.4-10.2) mg/dL Magnesium (1.6-2.3) mg/dL Total Bilirubin 0.50 (0.2-1.3) mg/dL AST 24 (14-36) U/L ALT 9 (0-35) U/L Alkaline Phosphatase 72 (38-126) U/L Troponin I (0.000-0.034) ng/mL Serum Total Protein 6.7 (6.3-8.2) g/dL Albumin 3.7 (3.5-5.0) g/dL Amylase 58 (30-110) U/L Lipase 102 (23-300) U/L Urine Color (YELLOW) Urine Appearance (CLEAR) Urine pH (5-6) Ur Specific [place] (1.005-1.025) Urine Protein (Negative) Urine Ketones (NEGATIVE) Urine Blood (0-5) Kwasi/ul Urine Nitrite (NEGATIVE) Urine Bilirubin (NEGATIVE) Urine Urobilinogen (0-1) mg/dL Ur Leukocyte Esterase (NEGATIVE) Urine WBC (Auto) (0-5) /HPF Urine RBC (Auto) (0-2) /HPF U Epithel Cells (Auto) (FEW) /HPF Urine Bacteria (Auto) (NEGATIVE) /HPF Urine Mucus (Auto) (NEGATIVE) /HPF Urine Culture Reflexed (NO) Urine Glucose (NEGATIVE) mg/dL Monoscreen (Negative) Influenza Type A Ag (NEGATIVE) Influenza Type B Ag (NEGATIVE) - Progress Progress: improved, re-examined Progress Note: 01/28/20 16:19 Chest x-ray shows no acute cardiopulmonary process. 01/28/20 18:38 Medical decision making: This patient has significant watery diarrhea. She feels weak and very fatigued. Her work-up is negative at this point except for mild chronic anemia. Her chest x-ray does not show pneumonia, her urine does no t show urinary tract infection. However, when we ambulated her her oxygenation dropped to the high 80s. In addition, she was admitted to the emergency department afebrile and now she has a low-grade fever of over 100 F. Patient states she feels better but she is still weak and fatigued. We will perform a rapid Covid test and bring the patient in for further IV hydration and management. 01/28/20 18:53 I am transferring care of this patient to Dr. Tijerina. I reviewed the test results that we have back and discussed the pending test he needs to follow-up on. He will make the final disposition of this patient. He accepts the care of this patient. Counseled pt/family regarding: lab results, diagnosis, rad results - Departure Departure Disposition: Observation Clinical Impression: Fever, Diarrhea, Weakness, Fatigue Condition: Fair Critical Care Time: No Referrals: FABI VALENCIA DO [Primary Care Provider] -
[2020-01-28] MEDS ORDERED: Sodium Chloride 0.9% 1000 ML 1,000 ML ONE ×2 (13:25→16:19)
[2020-01-28 13:58] LABS: Hematocrit 32.5 % (35-47); Mean Cell Volume 94.5 fl (78-100); Mean Corpuscular Hemoglobin 29.1 pg (26-32); Mean Corpuscular Hgb Concent. 30.8 g/dl (32-36); Mean Platelet Volume 10.4 fl (7.5-11.0); Platelet Count 181 K/mm3 (150-450); Red Blood Count 3.44 M/mm3 (4.1-5.4); Red Cell Distribution Width 16.7 % (11.5-14.0); White Blood Count 7.3 K/mm3 (4.0-10.5)
[2020-01-28 14:14] LABS: ALBUMIN 3.7 g/dL (3.5-5.0); ANION GAP 11.9 MEQ/L (5-15); BILIRUBIN,TOTAL 0.5 mg/dL (0.2-1.3); Calcium 8.9 mg/dL (8.4-10.2); Creatinine 1 2.06 mg/dL (0.52-1.04); Total Protein 6.7 g/dL (6.3-8.2)
[2020-01-28 14:18] LABS: INFLUENZA A NEGATIVE (NEGATIVE); INFLUENZA B NEGATIVE (NEGATIVE)
[2020-01-28 14:21] LABS: BAND 18 % (0.0-2.0); Lymphocytes 16 % (24-44); Monocyte 1 % (0.0-12.0); Neutrophils 65 % (36.0-66.0); Platelet Estimate NORMAL (NORMAL); Total Cells Counted 100
[2020-01-28 14:30] LABS: Absolute Neutrophil Ct (ANC) 6.03 (1.4-6.9)
--- NOTE | 2020-01-28 15:17 | XRAY ---
Indication: Cough, weakness, fatigue, diarrhea. Comparison: June 16, 2016. Portable chest again hyperinflated with chronic lung markings. No focal infiltrate, consolidation, or large effusion. Heart is not enlarged for AP portable technique. Bony thorax intact again with osteopenia and degenerative changes. Impression: Nonacute chest with chronic features.
[2020-01-28] MEDS ORDERED: TYLENOL 325 MG PO STA (17:27)
[2020-01-28] MEDS ORDERED: TYLENOL 325 MG ONE (17:36)
[2020-01-28 18:08] LABS: Appearance CLOUDY (CLEAR); Bacteria RARE /HPF (NEGATIVE); Bilirubin NEGATIVE (NEGATIVE); Blood NEGATIVE Ery/ul (0-5); Epithelial Cells RARE /HPF (FEW); Glucose NEGATIVE (NEGATIVE); Ketones NEGATIVE (NEGATIVE); Leukocyte Esterase NEGATIVE (NEGATIVE); Mucus SLIGHT /HPF (NEGATIVE); Nitrite NEGATIVE (NEGATIVE); Protein,Urine Dip NEGATIVE (Negative); Specific Gravity 1.016 (1.005-1.025); Urobilinogen NEGATIVE mg/dL (0-1)
[2020-01-28] MEDS ORDERED: REMDESIVIR 200 MG in Sodium Chloride 0.9% 250 ML 250 ML IV ONE (22:38)
[2020-01-28] MEDS ORDERED: Lomotil PO PRN (22:40)
[2020-01-28] MEDS ORDERED: Norco 10/325 MG Tablet PO PRN (22:42)
[2020-01-28] MEDS ORDERED: Sodium Chloride 0.9% 250 ML 250 ML IV ONE (22:58)
[2020-01-28] MEDS ORDERED: REMDESIVIR IV ONE (22:59)
[2020-01-28] MEDS: Sodium Chloride 0.9% 1000 ML 1,000 ML IV SCH (23:34)
[2020-01-28] MEDS: Norco 10/325 MG Tablet PO SCH (23:34)
[2020-01-28] MEDS: REQUIP 2MG TAB PO SCH (23:35)
[2020-01-28] MEDS: Coreg 6.25 MG PO SCH (23:35)
[2020-01-28] MEDS: Decadron 4 MG INJ IV SCH (23:36)
[2020-01-29] MEDS: ECOTRIN 81 MG PO SCH (09:09)
[2020-01-29] MEDS: hydroDIURIL 25 MG PO SCH (09:09)
[2020-01-29] MEDS: Klor Con 10 MEQ PO SCH (09:10)
[2020-01-29] MEDS: Decadron 4 MG INJ IV SCH ×2 (09:10→22:36)
[2020-01-29] MEDS: ZYLOPRIM 300 MG PO SCH (09:10)
[2020-01-29] MEDS: Lotensin 10 MG PO SCH (09:10)
[2020-01-29] MEDS: Lasix 40 MG PO SCH (09:11)
[2020-01-29] MEDS: SILDENAFIL CITRATE PO SCH ×3 (09:11→22:36)
[2020-01-29] MEDS: Coreg 6.25 MG PO SCH ×2 (09:11→22:37)
[2020-01-29] MEDS ORDERED: BENAZEPRIL PO SCH (10:00)
[2020-01-29] MEDS ORDERED: HYDROCHLOROTHIAZIDE PO SCH (10:00)
[2020-01-29] MEDS ORDERED: SILDENAFIL CITRATE PO SCH (10:00)
[2020-01-29] MEDS ORDERED: [UNRECOGNIZED DRUG - OTHER] PO SCH (10:00)
--- NOTE | 2020-01-29 10:59 | PCM.HP ---
History of Present Illness - Chief Complaint Chief Complaint: COVID+, GASTRITIS, hypoxia, SOB History of Present Illness: is a 74 year old female. who has a history of coronary artery disease, pulmonary hypertension and obesity and presents with weakness and fatigue for 5 days. She became more concerned of the fatigue since yesterday when she has had multiple watery diarrheal stools. Patient's dredge pipe installer is Dr. Jackson and her manager presentation is Dr. Márquez. Patient states that her normal room air oxygen saturation level is 94 to 96%. Patient has no known exposure to anyone with COVID-19 symptoms. Patient has no chest pain. Patient has no abdominal pain. She has had no nausea vomiting or diarrhea. She has had no fevers or chills. Patient denies myalgias and arthralgias. Timing/Duration: day(s) (5) Activities at Onset: activity Severity of Pain-Max: none Severity of Pain-Current: none Modifying Factors: Improves With: nothing Associated Symptoms: diarrhea, nausea, shortness of breath (Mild today), No vomiting Previous symptoms: no prior history - Review of Systems Constitutional: No Fever, No Chills Eyes: No Symptoms Ears, Nose, & Throat: No Symptoms Respiratory: Cough, Orthopnea, Short Of Breath Cardiac: No Chest Pain, No Edema, No Syncope Abdominal/Gastrointestinal: No Abdominal Pain, No Nausea, No Vomiting, No Diarrhea Genitourinary Symptoms: No Dysuria Musculoskeletal: No Back Pain, No Neck Pain Skin: No Rash Neurological: No Dizziness, No Focal Weakness, No Sensory Changes Psychological: No Symptoms Endocrine: No Symptoms Hematologic/Lymphatic: No Symptoms Immunological/Allergic: No Symptoms Medications & Allergies Home Medications: Home Medication List Carvedilol 6.25 mg [Coreg 6.25 MG] 6.25 mg PO BID 03/18/13 [History Confirmed 01/28/20] Allopurinol 300 mg [Zyloprim 300 mg] 300 mg PO DAILY 06/11/16 [History Confirmed 01/28/20] Aspirin [Aspirin EC] 81 mg PO DAILY 06/11/16 [History Confirmed 01/28/20] Furosemide 40 mg [Lasix 40 MG] 40 mg PO DAILY PRN 06/11/16 [History Confirmed 01/28/20] Ropinirole HCl [Requip] 3 mg PO HS 10/28/16 [History Confirmed 01/29/20] Sildenafil Citrate [Revatio] 20 mg PO TID 11/01/16 [History Confirmed 01/29/20] Benazepril/Hydrochlorothiazide [Benazepril-Hctz 10-12.5 mg Tab] 1 each PO DAILY 04/21/17 [History Confirmed 01/28/20] Potassium Chloride 10 Meq Tab* [Klor Con 10 MEQ] 10 meq PO DAILY 01/28/20 [History Confirmed 01/28/20] Carbidopa/Levodopa [Carbidopa-Levodopa 25-100 Tab] 1 tab PO BID 01/29/20 [History Confirmed 01/29/20] Allergies/Adverse Reactions: Allergies Allergy/AdvReac Type Severity Reaction Status Date / Time Penicillins Allergy Verified 01/28/20 13:30 - Past Medical History Past Medical History: Yes Neurological History: No Pertinent History ENT History: No Pertinent History Cardiac History: Myocardial Infarction ([place]) Respiratory History: CHF Endocrine Medical History: No Pertinent History Musculoskelatal History: Osteoarthritis GI Medical History: No Pertinent History History: Other Pyscho-Social History: No Pertinent History Reproductive Disorders: No Pertinent History Comment: KIDNEY STONES,UTI - Female History Are you now?: No - Past Surgical History Past Surgical History: Yes Neuro Surgical History: No Pertinent History Cardiac History: Cardiac Catheterization Respiratory Surgery: No Pertinent History GI Surgical History: Appendectomy, Cholecystectomy Genitourinary Surgical Hx: Other Musculskeletal Surgical Hx: Joint Replacement Female Surgical History: Tubal Ligation Other Surgical History: D &C, RIGHT KNEE REPLACEMENT, TONSILLECTOMY - Social History Smoking Status: Never smoker Exposure to second hand smoke: No Alcohol: None Drug Use: none Significant Family History: heart disease, hypertension - Physical Exam Vital Signs: Vital Signs - 24 hr Temp Pulse Resp BP Pulse Ox 01/29/20 09:45 66 91 L 01/29/20 08:54 18 01/29/20 08:26 74 18 85 L 01/29/20 07:45 97.8 F 68 18 116/65 93 L 01/29/20 06:59 23 01/29/20 05:41 67 17 94 L 01/29/20 05:00 23 01/29/20 04:10 98.7 F 72 25 H 105/62 93 L 01/29/20 03:00 26 H 01/29/20 02:09 71 25 H 91 L 01/29/20 01:04 90 L 01/29/20 01:00 26 H 01/28/20 23:53 77 24 92 L 01/28/20 22:40 100.2 F 77 24 132/53 87 L 01/28/20 21:50 87 21 90 L 01/28/20 21:08 72 18 141/63 93 L 01/28/20 20:00 74 18 115/64 93 L 01/28/20 19:27 79 20 93 L 01/28/20 18:00 82 20 150/78 93 L 01/28/20 17:13 100.5 F 79 20 143/97 92 L 01/28/20 16:00 70 16 139/59 98 01/28/20 14:44 68 24 99/41 93 L 01/28/20 13:14 98.3 F 68 20 110/52 95 General Appearance: no apparent distress, alert Neurologic Exam: alert, oriented x 3, cooperative, normal mood/affect, nml cerebellar function, nml station & gait, sensation nml, No motor deficits Eye Exam: PERRL/EOMI, eyes nml inspection Ears, Nose, Throat Exam: normal ENT inspection, TMs normal, pharynx normal, moist mucous membranes Neck Exam: normal inspection, non-tender, supple, full range of motion Respiratory Exam: diminished breath sounds, crackles/rales, rhonchi, wheezing, No respiratory distress Cardiovascular Exam: regular rate/rhythm, normal heart sounds, normal peripheral pulses Gastrointestinal/Abdomen Exam: soft, normal bowel sounds, No tenderness, No mass Back Exam: normal inspection, normal range of motion, No CVA tenderness, No vertebral tenderness Extremity Exam: normal inspection, normal range of motion, pelvis stable Skin Exam: normal color, warm, dry, No rash Lymphatic Exam: No adenopathy Results - Labs Lab/Micro Results: Lab Results-Last 24 Hours 01/28/20 01/28/20 01/28/20 Range/Units 13:17 13:40 13:40 WBC 7.3 (4.0-10.5) K/mm3 RBC 3.44 L (4.1-5.4) M/mm3 Hgb 10.0 L (12.0-16.0) gm/dl Hct 32.5 L (35-47) % MCV 94.5 (78-100) fl MCH 29.1 (26-32) pg MCHC 30.8 L (32-36) g/dl RDW 16.7 H (11.5-14.0) % Plt Count 181 (150-450) K/mm3 MPV 10.4 (7.5-11.0) fl Absolute Granulocytes 6.03 (1.4-6.9) Segmented Neutrophils 65 (36.0-66.0) % Band Neutrophils 18 H (0.0-2.0) % Lymphocytes (Manual) 16 L (24-44) % Monocytes (Manual) 1 (0.0-12.0) % Platelet Estimate NORMAL (NORMAL) RBC Morphology NORMAL D-Dimer (215-500) ng/mL Sodium 139 (137-145) mmol/L Potassium 4.0 (3.5-5.1) mmol/L Chloride 105 (98-107) mmol/L Carbon Dioxide 26 (22-30) mmol/L Anion Gap 11.9 (5-15) MEQ/L BUN 39 H (7-17) mg/dL Creatinine 2.06 H (0.52-1.04) mg/dL Estimated GFR 25.0 ML/MIN Glucose 118 H (74-106) mg/dL Lactic Acid 1.4 (0.4-2.0) Calcium 8.9 (8.4-10.2) mg/dL Magnesium (1.6-2.3) mg/dL Total Bilirubin 0.50 (0.2-1.3) mg/dL AST 24 (14-36) U/L ALT 9 (0-35) U/L Alkaline Phosphatase 72 (38-126) U/L Troponin I (0.000-0.034) ng/mL Serum Total Protein 6.7 (6.3-8.2) g/dL Albumin 3.7 (3.5-5.0) g/dL Amylase 58 (30-110) U/L Lipase 102 (23-300) U/L Urine Color (YELLOW) Urine Appearance (CLEAR) Urine pH (5-6) Ur Specific Avery (1.005-1.025) Urine Protein (Negative) Urine Ketones (NEGATIVE) Urine Blood (0-5) Kwasi/ul Urine Nitrite (NEGATIVE) Urine Bilirubin (NEGATIVE) Urine Urobilinogen (0-1) mg/dL Ur Leukocyte Esterase (NEGATIVE) Urine WBC (Auto) (0-5) /HPF Urine RBC (Auto) (0-2) /HPF U Epithel Cells (Auto) (FEW) /HPF Urine Bacteria (Auto) (NEGATIVE) /HPF Urine Mucus (Auto) (NEGATIVE) /HPF Urine Culture Reflexed (NO) Urine Glucose (NEGATIVE) mg/dL Monoscreen (Negative) Influenza Type A Ag (NEGATIVE) Influenza Type B Ag (NEGATIVE) SARS-CoV-2 (PCR) (NEGATIVE) 01/28/20 01/28/20 01/28/20 Range/Units 13:40 13:40 13:40 WBC (4.0-10.5) K/mm3 RBC (4.1-5.4) M/mm3 Hgb (12.0-16.0) gm/dl Hct (35-47) % MCV (78-100) fl MCH (26-32) pg MCHC (32-36) g/dl RDW (11.5-14.0) % Plt Count (150-450) K/mm3 MPV (7.5-11.0) fl Absolute Granulocytes (1.4-6.9) Segmented Neutrophils (36.0-66.0) % Band Neutrophils (0.0-2.0) % Lymphocytes (Manual) (24-44) % Monocytes (Manual) (0.0-12.0) % Platelet Estimate (NORMAL) RBC Morphology D-Dimer (215-500) ng/mL Sodium (137-145) mmol/L Potassium (3.5-5.1) mmol/L Chloride (98-107) mmol/L Carbon Dioxide (22-30) mmol/L Anion Gap (5-15) MEQ/L BUN (7-17) mg/dL Creatinine (0.52-1.04) mg/dL Estimated GFR ML/MIN Glucose (74-106) mg/dL Lactic Acid (0.4-2.0) Calcium (8.4-10.2) mg/dL Magnesium 1.9 (1.6-2.3) mg/dL Total Bilirubin (0.2-1.3) mg/dL AST (14-36) U/L ALT (0-35) U/L Alkaline Phosphatase (38-126) U/L Troponin I < 0.012 (0.000-0.034) ng/mL Serum Total Protein (6.3-8.2) g/dL Albumin (3.5-5.0) g/dL Amylase (30-110) U/L Lipase (23-300) U/L Urine Color (YELLOW) Urine Appearance (CLEAR) Urine pH (5-6) Ur Specific Avery (1.005-1.025) Urine Protein (Negative) Urine Ketones (NEGATIVE) Urine Blood (0-5) Kwasi/ul Urine Nitrite (NEGATIVE) Urine Bilirubin (NEGATIVE) Urine Urobilinogen (0-1) mg/dL Ur Leukocyte Esterase (NEGATIVE) Urine WBC (Auto) (0-5) /HPF Urine RBC (Auto) (0-2) /HPF U Epithel Cells (Auto) (FEW) /HPF Urine Bacteria (Auto) (NEGATIVE) /HPF Urine Mucus (Auto) (NEGATIVE) /HPF Urine Culture Reflexed (NO) Urine Glucose (NEGATIVE) mg/dL Monoscreen (Negative) Influenza Type A Ag NEGATIVE (NEGATIVE) Influenza Type B Ag NEGATIVE (NEGATIVE) SARS-CoV-2 (PCR) (NEGATIVE) 01/28/20 01/28/20 01/28/20 Range/Units 13:40 14:46 17:28 WBC (4.0-10.5) K/mm3 RBC (4.1-5.4) M/mm3 Hgb (12.0-16.0) gm/dl Hct (35-47) % MCV (78-100) fl MCH (26-32) pg MCHC (32-36) g/dl RDW (11.5-14.0) % Plt Count (150-450) K/mm3 MPV (7.5-11.0) fl Absolute Granulocytes (1.4-6.9) Segmented Neutrophils (36.0-66.0) % Band Neutrophils (0.0-2.0) % Lymphocytes (Manual) (24-44) % Monocytes (Manual) (0.0-12.0) % Platelet Estimate (NORMAL) RBC Morphology D-Dimer 363 (215-500) ng/mL Sodium (137-145) mmol/L Potassium (3.5-5.1) mmol/L Chloride (98-107) mmol/L Carbon Dioxide (22-30) mmol/L Anion Gap (5-15) MEQ/L BUN (7-17) mg/dL Creatinine (0.52-1.04) mg/dL Estimated GFR ML/MIN Glucose (74-106) mg/dL Lactic Acid (0.4-2.0) Calcium (8.4-10.2) mg/dL Magnesium (1.6-2.3) mg/dL Total Bilirubin (0.2-1.3) mg/dL AST (14-36) U/L ALT (0-35) U/L Alkaline Phosphatase (38-126) U/L Troponin I (0.000-0.034) ng/mL Serum Total Protein (6.3-8.2) g/dL Albumin (3.5-5.0) g/dL Amylase (30-110) U/L Lipase (23-300) U/L Urine Color YELLOW (YELLOW) Urine Appearance CLOUDY (CLEAR) Urine pH 5.0 (5-6) Ur Specific Avery 1.016 (1.005-1.025) Urine Protein NEGATIVE (Negative) Urine Ketones NEGATIVE (NEGATIVE) Urine Blood NEGATIVE (0-5) Kwasi/ul Urine Nitrite NEGATIVE (NEGATIVE) Urine Bilirubin NEGATIVE (NEGATIVE) Urine Urobilinogen NEGATIVE (0-1) mg/dL Ur Leukocyte Esterase NEGATIVE (NEGATIVE) Urine WBC (Auto) 3-5 (0-5) /HPF Urine RBC (Auto) NONE (0-2) /HPF U Epithel Cells (Auto) RARE (FEW) /HPF Urine Bacteria (Auto) RARE (NEGATIVE) /HPF Urine Mucus (Auto) SLIGHT (NEGATIVE) /HPF Urine Culture Reflexed NO (NO) Urine Glucose NEGATIVE (NEGATIVE) mg/dL Monoscreen NEGATIVE (Negative) Influenza Type A Ag (NEGATIVE) Influenza Type B Ag (NEGATIVE) SARS-CoV-2 (PCR) (NEGATIVE) 01/28/20 01/28/20 01/28/20 Range/Units 18:31 18:45 19:25 WBC (4.0-10.5) K/mm3 RBC (4.1-5.4) M/mm3 Hgb (12.0-16.0) gm/dl Hct (35-47) % MCV (78-100) fl MCH (26-32) pg MCHC (32-36) g/dl RDW (11.5-14.0) % Plt Count (150-450) K/mm3 MPV (7.5-11.0) fl Absolute Granulocytes (1.4-6.9) Segmented Neutrophils (36.0-66.0) % Band Neutrophils (0.0-2.0) % Lymphocytes (Manual) (24-44) % Monocytes (Manual) (0.0-12.0) % Platelet Estimate (NORMAL) RBC Morphology D-Dimer (215-500) ng/mL Sodium (137-145) mmol/L Potassium (3.5-5.1) mmol/L Chloride (98-107) mmol/L Carbon Dioxide (22-30) mmol/L Anion Gap (5-15) MEQ/L BUN (7-17) mg/dL Creatinine (0.52-1.04) mg/dL Estimated GFR ML/MIN Glucose (74-106) mg/dL Lactic Acid (0.4-2.0) Calcium (8.4-10.2) mg/dL Magnesium (1.6-2.3) mg/dL Total Bilirubin (0.2-1.3) mg/dL AST (14-36) U/L ALT (0-35) U/L Alkaline Phosphatase (38-126) U/L Troponin I < 0.012 < 0.012 (0.000-0.034) ng/mL Serum Total Protein (6.3-8.2) g/dL Albumin (3.5-5.0) g/dL Amylase (30-110) U/L Lipase (23-300) U/L Urine Color (YELLOW) Urine Appearance (CLEAR) Urine pH (5-6) Ur Specific Avery (1.005-1.025) Urine Protein (Negative) Urine Ketones (NEGATIVE) Urine Blood (0-5) Kwasi/ul Urine Nitrite (NEGATIVE) Urine Bilirubin (NEGATIVE) Urine Urobilinogen (0-1) mg/dL Ur Leukocyte Esterase (NEGATIVE) Urine WBC (Auto) (0-5) /HPF Urine RBC (Auto) (0-2) /HPF U Epithel Cells (Auto) (FEW) /HPF Urine Bacteria (Auto) (NEGATIVE) /HPF Urine Mucus (Auto) (NEGATIVE) /HPF Urine Culture Reflexed (NO) Urine Glucose (NEGATIVE) mg/dL Monoscreen (Negative) Influenza Type A Ag (NEGATIVE) Influenza Type B Ag (NEGATIVE) SARS-CoV-2 (PCR) POSITIVE A (NEGATIVE) - Radiology Impressions Radiology Exams & Impressions: Radiology Procedures Category Date Time Status CHEST 1 VIEW (PORTABLE) Stat Exams 01/28/20 14:46 Completed - Other Procedures and Tests Respiratory Therapy 01/28/20 21:49 Respiratory Therapy Assessment DAILY 01/28/20 21:55 Oxygen Nasal Cannula 2 lpm Assessment/Plan (1) Pneumonia due to COVID-19 virus Current Visit: Yes Status: Acute Assessment & Plan: Chief Complaint Diagnosis COVID+, GASTRITIS, hypoxia, SOB Allergies Allergy/AdvReac Type Severity Reaction Status Date / Time Penicillins Allergy Verified 01/28/20 13:30 Vital Signs (Last 24 hours) Temp Pulse Resp BP Pulse Ox 01/29/20 09:45 66 91 L 01/29/20 08:54 18 01/29/20 08:26 74 18 85 L 01/29/20 07:45 97.8 F 68 18 116/65 93 L 01/29/20 06:59 23 01/29/20 05:41 67 17 94 L 01/29/20 05:00 23 01/29/20 04:10 98.7 F 72 25 H 105/62 93 L 01/29/20 03:00 26 H 01/29/20 02:09 71 25 H 91 L 01/29/20 01:04 90 L 01/29/20 01:00 26 H 01/28/20 23:53 77 24 92 L 01/28/20 22:40 100.2 F 77 24 132/53 87 L 01/28/20 21:50 87 21 90 L 01/28/20 21:08 72 18 141/63 93 L 01/28/20 20:00 74 18 115/64 93 L 01/28/20 19:27 79 20 93 L 01/28/20 18:00 82 20 150/78 93 L 01/28/20 17:13 100.5 F 79 20 143/97 92 L 01/28/20 16:00 70 16 139/59 98 01/28/20 14:44 68 24 99/41 93 L 01/28/20 13:14 98.3 F 68 20 110/52 95 Home Medications Medication Instructions Recorded Confirmed Last Taken Type Potassium Chloride 10 Meq Tab* 10 meq PO DAILY 01/28/20 01/28/20 Unknown History [Klor Con 10 MEQ] Carbidopa/Levodopa 1 tab PO BID 01/29/20 01/29/20 Unknown History [Carbidopa-Levodopa 25-100 Tab] Current Medications Generic Name Dose Route Start Last Admin Trade Name Freq PRN Reason Stop Dose Admin Hydrocodone Bitart/Acetaminophen 1 tab 01/28/20 22:42 [place] 10/325 Mg Tablet PO 02/02/20 22:41 Q6H PRN PRN PAIN Hydrocodone Bitart/Acetaminophen 1 tab 01/28/20 22:00 01/28/20 23:34 [place] 10/325 Mg Tablet PO 02/02/20 21:59 1 tab HS SHAILA Administration Allopurinol 300 mg 01/29/20 10:00 01/29/20 09:10 Zyloprim 300 Mg PO 02/28/20 09:59 300 mg DAILY SHAILA Administration Aspirin 81 mg 01/29/20 10:00 01/29/20 09:09 Ecotrin 81 Mg PO 02/28/20 09:59 81 mg DAILY SHAILA Administration Benazepril HCl 10 mg 01/29/20 10:00 01/29/20 09:10 Lotensin 10 Mg PO 02/28/20 09:59 10 mg DAILY SHAILA Administration Carvedilol 6.25 mg 01/28/20 22:00 01/29/20 09:11 Coreg 6.25 Mg PO 02/27/20 21:59 6.25 mg BID SHAILA Administration Dexamethasone Sodium Phosphate 4 mg 01/28/20 22:00 01/29/20 09:10 Decadron 4 Mg Inj IV 02/27/20 21:59 4 mg Q12H SHAILA Administration Diphenoxylate HCl/Atropine 2 tablet 01/28/20 22:40 01/29/20 09:16 Lomotil PO 02/27/20 22:39 2 tablet Q4H PRN PRN Administration DIARRHEA Furosemide 40 mg 01/29/20 10:00 01/29/20 09:11 Lasix 40 Mg PO 02/28/20 09:59 Not Given DAILY SHAILA Hydrochlorothiazide 12.5 mg 01/29/20 10:00 01/29/20 09:09 Hydrodiuril 25 Mg PO 02/28/20 09:59 12.5 mg DAILY SHAILA Administration Sodium Chloride 1,000 mls @ 45 mls/hr 01/28/20 22:45 01/28/20 23:34 Sodium Chloride 0.9% 1000 Ml IV 02/27/20 22:44 45 mls/hr .[id number] SHAILA Administration Remdesivir 100 mg/ Sodium 100 mls @ 100 mls/hr 01/29/20 16:00 Chloride IV 02/01/20 16:59 Q24H SHAILA Sildenafil 20mg 1 tab 01/29/20 10:00 01/29/20 09:11 Tablet PO 02/28/20 09:59 1 tab TID SHAILA Administration Potassium Chloride 10 meq 01/29/20 10:00 01/29/20 09:10 Klor Con 10 Meq PO 02/28/20 09:59 10 meq DAILY SHAILA Administration Ropinirole HCl 3 mg 01/28/20 22:00 01/28/20 23:35 Requip 2mg Tab PO 02/27/20 21:59 3 mg HS SHAILA Administration Discontinued Medications Generic Name Dose Route Start Last Admin Trade Name Freq PRN Reason Stop Dose Admin Acetaminophen 650 mg 01/28/20 17:27 01/28/20 17:37 Tylenol 325 Mg PO 01/28/20 17:28 650 mg STAT STA Administration Acetaminophen Confirm 01/28/20 17:36 Tylenol 325 Mg Administered 01/28/20 17:37 Dose 650 mg .ROUTE .STK-MED ONE Sodium Chloride 1,000 mls @ 999 mls/hr 01/28/20 13:17 01/28/20 16:18 Sodium Chloride 0.9% 1000 Ml IV 01/28/20 14:17 Infused .Q1H1M STA Infusion Sodium Chloride Confirm 01/28/20 13:25 Sodium Chloride 0.9% 1000 Ml Administered 01/28/20 13:26 Dose 1,000 mls @ ud .ROUTE .STK-MED ONE Sodium Chloride 1,000 mls @ 999 mls/hr 01/28/20 15:36 01/28/20 17:41 Sodium Chloride 0.9% 1000 Ml IV 01/28/20 16:36 Infused .Q1H1M STA Infusion Sodium Chloride Confirm 01/28/20 16:19 Sodium Chloride 0.9% 1000 Ml Administered 01/28/20 16:20 Dose 1,000 mls @ ud .ROUTE .STK-MED ONE Remdesivir 200 mg/ Sodium 250 mls @ 125 mls/hr 01/28/20 22:38 01/28/20 23:34 Chloride IV 01/29/20 00:37 125 mls/hr ONCE ONE Administration Sodium Chloride Confirm 01/28/20 22:58 Sodium Chloride 0.9% 250 Ml Administered 01/28/20 22:59 Dose 250 mls @ ud IV .STK-MED ONE Remdesivir Confirm 01/28/20 22:59 Remdesivir Administered 01/28/20 23:00 Dose 200 mg IV .STK-MED ONE Intake & Output (Last 24 hours) 01/26/20 01/27/20 01/28/20 01/29/20 11:59 11:59 11:59 11:59 Intake Total 1101 Output Total 1000 Balance 101 Weight 97.3 kg Microbiology Results (Last 24 hours) 01/28/20 13:45 Blood Blood Culture Gram Stain - Pending 01/28/20 13:45 Blood Blood Culture - Pending Laboratory Results (Last 24 hours) 01/28/20 01/28/20 01/28/20 19:25 18:45 18:31 WBC RBC Hgb Hct MCV MCH MCHC RDW Plt Count MPV Absolute Granulocytes Segmented Neutrophils Band Neutrophils Lymphocytes (Manual) Monocytes (Manual) Platelet Estimate RBC Morphology D-Dimer Sodium Potassium Chloride Carbon Dioxide Anion Gap BUN Creatinine Estimated GFR Glucose Lactic Acid Calcium Magnesium Total Bilirubin AST ALT Alkaline Phosphatase Troponin I < 0.012 < 0.012 Serum Total Protein Albumin Amylase Lipase Urine Color Urine Appearance Urine pH Ur Specific Avery Urine Protein Urine Ketones Urine Blood Urine Nitrite Urine Bilirubin Urine Urobilinogen Ur Leukocyte Esterase Urine WBC (Auto) Urine RBC (Auto) U Epithel Cells (Auto) Urine Bacteria (Auto) Urine Mucus (Auto) Urine Culture Reflexed Urine Glucose Monoscreen Influenza Type A Ag Influenza Type B Ag SARS-CoV-2 (PCR) POSITIVE A 01/28/20 01/28/20 01/28/20 17:28 14:46 13:40 WBC RBC Hgb Hct MCV MCH MCHC RDW Plt Count MPV Absolute Granulocytes Segmented Neutrophils Band Neutrophils Lymphocytes (Manual) Monocytes (Manual) Platelet Estimate RBC Morphology D-Dimer 363 Sodium Potassium Chloride Carbon Dioxide Anion Gap BUN Creatinine Estimated GFR Glucose Lactic Acid Calcium Magnesium Total Bilirubin AST ALT Alkaline Phosphatase Troponin I Serum Total Protein Albumin Amylase Lipase Urine Color YELLOW Urine Appearance CLOUDY Urine pH 5.0 Ur Specific Avery 1.016 Urine Protein NEGATIVE Urine Ketones NEGATIVE Urine Blood NEGATIVE Urine Nitrite NEGATIVE Urine Bilirubin NEGATIVE Urine Urobilinogen NEGATIVE Ur Leukocyte Esterase NEGATIVE Urine WBC (Auto) 3-5 Urine RBC (Auto) NONE U Epithel Cells (Auto) RARE Urine Bacteria (Auto) RARE Urine Mucus (Auto) SLIGHT Urine Culture Reflexed NO Urine Glucose NEGATIVE Monoscreen NEGATIVE Influenza Type A Ag Influenza Type B Ag SARS-CoV-2 (PCR) 01/28/20 01/28/20 01/28/20 13:40 13:40 13:40 WBC RBC Hgb Hct MCV MCH MCHC RDW Plt Count MPV Absolute Granulocytes Segmented Neutrophils Band Neutrophils Lymphocytes (Manual) Monocytes (Manual) Platelet Estimate RBC Morphology D-Dimer Sodium Potassium Chloride Carbon Dioxide Anion Gap BUN Creatinine Estimated GFR Glucose Lactic Acid Calcium Magnesium 1.9 Total Bilirubin AST ALT Alkaline Phosphatase Troponin I < 0.012 Serum Total Protein Albumin Amylase Lipase Urine Color Urine Appearance Urine pH Ur Specific Avery Urine Protein Urine Ketones Urine Blood Urine Nitrite Urine Bilirubin Urine Urobilinogen Ur Leukocyte Esterase Urine WBC (Auto) Urine RBC (Auto) U Epithel Cells (Auto) Urine Bacteria (Auto) Urine Mucus (Auto) Urine Culture Reflexed Urine Glucose Monoscreen Influenza Type A Ag NEGATIVE Influenza Type B Ag NEGATIVE SARS-CoV-2 (PCR) 01/28/20 01/28/20 01/28/20 13:40 13:40 13:17 WBC 7.3 RBC 3.44 L Hgb 10.0 L Hct 32.5 L MCV 94.5 MCH 29.1 MCHC 30.8 L RDW 16.7 H Plt Count 181 MPV 10.4 Absolute Granulocytes 6.03 Segmented Neutrophils 65 Band Neutrophils 18 H Lymphocytes (Manual) 16 L Monocytes (Manual) 1 Platelet Estimate NORMAL RBC Morphology NORMAL D-Dimer Sodium 139 Potassium 4.0 Chloride 105 Carbon Dioxide 26 Anion Gap 11.9 BUN 39 H Creatinine 2.06 H Estimated GFR 25.0 Glucose 118 H Lactic Acid 1.4 Calcium 8.9 Magnesium Total Bilirubin 0.50 AST 24 ALT 9 Alkaline Phosphatase 72 Troponin I Serum Total Protein 6.7 Albumin 3.7 Amylase 58 Lipase 102 Urine Color Urine Appearance Urine pH Ur Specific Avery Urine Protein Urine Ketones Urine Blood Urine Nitrite Urine Bilirubin Urine Urobilinogen Ur Leukocyte Esterase Urine WBC (Auto) Urine RBC (Auto) U Epithel Cells (Auto) Urine Bacteria (Auto) Urine Mucus (Auto) Urine Culture Reflexed Urine Glucose Monoscreen Influenza Type A Ag Influenza Type B Ag SARS-CoV-2 (PCR) Orders (Last 24 hours) Category Date Time Status Up [Up With Assistance] ONCE Activity 01/28/20 22:35 Active Admission Status Change [Change to Full Admit] ROUTINE Care 01/28/20 21:38 Active EKG-ER Only STAT Care 01/28/20 13:17 Completed IV Insertion STAT Care 01/28/20 13:17 Completed Isolation, Initiate & Maintain Q6H Care 01/28/20 19:[address] in Observation ROUTINE Care 01/28/20 19:52 Active Cardio-Pulmonary Rehab .as ordered Cons 01/29/20 01:04 Active House Regular Diet Diet 01/29/20 Breakfast Active CHEST 1 VIEW (PORTABLE) Stat Exams 01/28/20 14:46 Completed AMYLASE Stat Lab 01/28/20 13:40 Completed BLOOD CULTURE Stat Lab 01/28/20 13:45 Received CBC W DIFF Stat Lab 01/28/20 13:40 Completed CMP Stat Lab 01/28/20 13:40 Completed D-DIMER QUANTITATIVE Stat Lab 01/28/20 14:46 Completed GI PANEL Stat Lab 01/28/20 14:23 Ordered INFLUENZA A+B CECIL Stat Lab 01/28/20 13:40 Completed LIPASE Stat Lab 01/28/20 13:40 Completed Lactic Acid Stat Lab 01/28/20 13:17 Completed MAG [MAGNESIUM] Stat Lab 01/28/20 13:40 Completed Manual Differential NC Stat Lab 01/28/20 13:40 Completed [place] Screen Stat Lab 01/28/20 13:40 Completed TROPONIN Q3H Lab 01/28/20 13:40 Completed TROPONIN Q3H Lab 01/28/20 18:31 Completed TROPONIN Q3H Lab 01/28/20 19:25 Completed UA W/RFX UR CULTURE Stat Lab 01/28/20 17:28 Completed Acetaminophen 325 mg [Tylenol 325 mg] Med 01/28/20 17:36 Discontinued 650 mg .ROUTE .STK-MED ONE Acetaminophen 325 mg [Tylenol 325 mg] Med 01/28/20 17:27 Discontinued 650 mg PO STAT STA Allopurinol 300 mg [Zyloprim 300 mg] Med 01/29/20 10:00 Active 300 mg PO DAILY Aspirin EC 81 mg [Ecotrin 81 mg] Med 01/29/20 10:00 Active 81 mg PO DAILY Benazepril HCl 10 mg [Lotensin 10 MG] Med 01/29/20 10:00 Active 10 mg PO DAILY Carvedilol 6.25 mg [Coreg 6.25 MG] Med 01/28/20 22:00 Active 6.25 mg PO BID Dexamethasone 4 mg [Decadron 4 MG INJ] Med 01/28/20 22:00 Active 4 mg IV Q12H Diphenoxylate HCl/Atropine [Lomotil] Med 01/28/20 22:40 Active 2 tablet PO Q4H PRN PRN Furosemide 40 mg [Lasix 40 MG] Med 01/29/20 10:00 Active 40 mg PO DAILY Hydrochlorothiazide 25 mg [hydroDIURIL 25 MG] Med 01/29/20 10:00 Active 12.5 mg PO DAILY Hydrocodone/APAP 10/325 mg [[place] 10/325 MG Tablet Med 01/28/20 22:00 Active *] 1 tab PO HS Hydrocodone/APAP 10/325 mg [[place] 10/325 MG Tablet Med 01/28/20 22:42 Active *] 1 tab PO Q6H PRN PRN NaCl 0.9% 1000 ml [Sodium Chloride 0.9% 1000 ML] 1,000 Med 01/28/20 13:25 Discontinued ml .ROUTE UD NaCl 0.9% 1000 ml [Sodium Chloride 0.9% 1000 ML] 1,000 Med 01/28/20 16:19 Discontinued ml .ROUTE UD NaCl 0.9% 1000 ml [Sodium Chloride 0.9% 1000 ML] 1,000 Med 01/28/20 22:45 Active ml IV 45 mls/hr NaCl 0.9% 1000 ml [Sodium Chloride 0.9% 1000 ML] 1,000 Med 01/28/20 13:17 Discontinued ml IV 999 mls/hr NaCl 0.9% 1000 ml [Sodium Chloride 0.9% 1000 ML] 1,000 Med 01/28/20 15:36 Discontinued ml IV 999 mls/hr NaCl 0.9% 250 ml [Sodium Chloride 0.9% 250 ML] 250 ml Med 01/28/20 22:58 Discontinued IV UD Potassium Chloride 10 Meq Tab* [Klor Con 10 MEQ] Med 01/29/20 10:00 Active 10 meq PO DAILY Remdesivir Med 01/28/20 22:59 Discontinued 200 mg IV .STK-MED ONE Remdesivir 100 mg Med 01/29/20 16:00 Active NaCl 0.9% 100Ml [Sodium Chloride 0.9% 100 ML IVPB] 100 ml IV Q24H Remdesivir 200 mg Med 01/28/20 22:38 Discontinued NaCl 0.9% 250 ml [Sodium Chloride 0.9% 250 ML] 250 ml IV ONCE Ropinirole 2Mg [Requip 2Mg Tab] Med 01/28/20 22:00 Active 3 mg PO HS Sildenafil Citrate [Revatio] Med 01/29/20 10:00 Active 1 tab PO TID EKG REPEAT IN AM RT 01/28/20 19:52 Completed Oxygen Nasal Cannula 2 lpm RT 01/28/20 21:55 Active Pulse Oximetry .continuos RT 01/29/20 21:00 Active Respiratory Therapy Assessment DAILY RT 01/28/20 21:49 Active Respiratory Therapy Consult ROUTINE RT 01/28/20 19:52 Completed Patient Care Notes (Last 24 hours) 01/29/20 10:33 Nursing Note by Charline Rojas pt placed on RA and o2sat down to 85%-placed back on2L and o2sat back up to 94% Initialized on 01/29/20 10:33 - END OF NOTE 01/29/20 10:24 Case Management Note by Mavis Gomez PLAN REVIEWED IN CHART. NO LAYCAREGIVER ASSIGNED PER PATIENT. NORMALLY PATIENT LIVES AT HOME WITH SPOUSE, IS A&OX3. PT HAS ACCESS TO TRANSPORTATION AND HAS MEANS TO OBTAIN MEDICATIONS. AT THIS TIME NO KNOWN SERVICES OR DME NEEDED. PLAN TO D/C HOME. WILL CONTINUE TO FOLLOW FOR ALL D/C NEEDS. Initialized on 01/29/20 10:24 - END OF NOTE 01/29/20 10:01 Nursing Note by Esdras Villeda Unknown if patient has any home needs at this time. Patient still on o2 and discharge to home date not known at this time. Initialized on 01/29/20 10:01 - END OF NOTE Code(s): U07.1 - COVID-19; J12.89 - OTHER VIRAL PNEUMONIA (2) Hypertension Current Visit: Yes Status: Acute Qualifiers: Hypertension type: essential hypertension Qualified Code(s): I10 - Essential (primary) hypertension Assessment & Plan: Medication Report Hydrocodone Bitart/Acetaminophen ([place] 10/325 Mg Tablet) 1 tab PO HS SHAILA Stop: 02/02/20 21:59 Last Admin: 01/28/20 23:34 Dose: 1 tab Documented by: JERRICA ROY PAIN Document 01/28/20 23:34 LB (Rec: 01/28/20 23:35 LB [id number]) Reassesment Pain Scale Used 0-10 Pain Scale Re-Assess: Pain Reassessment Document 01/29/20 00:04 LB (Rec: 01/29/20 06:57 LB [id number]) Pain Description Comment scheduled dose of [place] Allopurinol (Zyloprim 300 Mg) 300 mg PO DAILY SHAILA Stop: 02/28/20 09:59 Last Admin: 01/29/20 09:10 Dose: 300 mg Documented by: JIM Aspirin (Ecotrin 81 Mg) 81 mg PO DAILY SHAILA Stop: 02/28/20 09:59 Last Admin: 01/29/20 09:09 Dose: 81 mg Documented by: JIM Benazepril HCl (Lotensin 10 Mg) 10 mg PO DAILY SHAILA Stop: 02/28/20 09:59 Last Admin: 01/29/20 09:10 Dose: 10 mg Documented by: JIM Carvedilol (Coreg 6.25 Mg) 6.25 mg PO BID SHAILA Stop: 02/27/20 21:59 Last Admin: 01/29/20 09:11 Dose: 6.25 mg Documented by: JIM Dexamethasone Sodium Phosphate (Decadron 4 Mg Inj) 4 mg IV Q12H SHAILA Stop: 02/27/20 21:59 Last Admin: 01/29/20 09:10 Dose: 4 mg Documented by: IJM Diphenoxylate HCl/Atropine (Lomotil) 2 tablet PO Q4H PRN PRN PRN Reason: DIARRHEA Stop: 02/27/20 22:39 Last Admin: 01/29/20 09:16 Dose: 2 tablet Documented by: JIM Furosemide (Lasix 40 Mg) 40 mg PO DAILY SHAILA Stop: 02/28/20 09:59 Last Admin: 01/29/20 09:11 Dose: Not Given Documented by: JIM Non-Admin Reason: Patient Refused Hydrochlorothiazide (Hydrodiuril 25 Mg) 12.5 mg PO DAILY SHAILA Stop: 02/28/20 09:59 Last Admin: 01/29/20 09:09 Dose: 12.5 mg Documented by: JIM Sodium Chloride (Sodium Chloride 0.9% 1000 Ml) 1,000 mls @ 45 mls/hr IV .[id number] SHAILA Stop: 02/27/20 22:44 Last Admin: 01/28/20 23:34 Dose: 45 mls/hr Documented by: JERRICA Infusion/Titration Document 01/28/20 23:34 LB (Rec: 01/28/20 23:34 LB [id number]) Dosing & Rate IV Rate 45 Increase/Decrease Started Cumulative Dose Not Applicable IV Intake Container Volume 1,000 Volume Adjustment/Waste 0 Sildenafil 20mg (Tablet) 1 tab PO TID SHAILA Stop: 02/28/20 09:59 Last Admin: 01/29/20 09:11 Dose: 1 tab Documented by: JIM Potassium Chloride (Klor Con 10 Meq) 10 meq PO DAILY SHAILA Stop: 02/28/20 09:59 Last Admin: 01/29/20 09:10 Dose: 10 meq Documented by: JIM Ropinirole HCl (Requip 2mg Tab) 3 mg PO HS SHAILA Stop: 02/27/20 21:59 Last Admin: 01/28/20 23:35 Dose: 3 mg Documented by: JERRICA Discontinued Medications Acetaminophen (Tylenol 325 Mg) 650 mg PO STAT STA Stop: 01/28/20 17:28 Last Admin: 01/28/20 17:37 Dose: 650 mg Documented by: NICHELLE Medication Administration (PO Document 01/28/20 17:37 AH (Rec: 01/28/20 17:37 AH [id number]) Medication Administration PO Med Administration Yes MAR PAIN Document 01/28/20 17:37 AH (Rec: 01/28/20 17:37 AH [id number]) Reassesment Pain Scale Used 0-10 Pain Scale Pain Intensity (0-10) 4 Management Goal (0-10) 2 Sodium Chloride (Sodium Chloride 0.9% 1000 Ml) 1,000 mls @ 999 mls/hr IV .Q1H1M STA Stop: 01/28/20 14:17 Last Infusion: 01/28/20 16:18 Dose: 999 mls/hr Documented by: MMAY Infusion/Titration Document 01/28/20 16:18 MM (Rec: 01/28/20 16:19 MM [id number]) Dosing & Rate IV Rate 999 Increase/Decrease Infused Cumulative Dose Not Applicable IV Intake Infusion Intake 1,000 Cumulative Intake (Bag) 1,000 Cumulative Intake (Rx) 1,000 Container Volume 0 Volume Adjustment/Waste 0 Sodium Chloride (Sodium Chloride 0.9% 1000 Ml) 1,000 mls @ 999 mls/hr IV .Q1H1M STA Stop: 01/28/20 16:36 Last Infusion: 01/28/20 17:41 Dose: 999 mls/hr Documented by: MMAY Infusion/Titration Document 01/28/20 17:41 MM (Rec: 01/28/20 17:41 MM [id number]) Dosing & Rate IV Rate 999 Increase/Decrease Infused Cumulative Dose Not Applicable IV Intake Infusion Intake 1,000 Cumulative Intake (Bag) 1,000 Cumulative Intake (Rx) 1,000 Container Volume 0 Volume Adjustment/Waste 0 Remdesivir 200 mg/ Sodium (Chloride) 250 mls @ 125 mls/hr IV ONCE ONE Stop: 01/29/20 00:37 Last Admin: 01/28/20 23:34 Dose: 125 mls/hr Documented by: JERRICA Code(s): I10 - ESSENTIAL (PRIMARY) HYPERTENSION
[2020-01-29] MEDS: REMDESIVIR 100 MG in Sodium Chloride 0.9% 100 ML IVPB 100 ML IV SCH (15:08)
[2020-01-29] MEDS: ENOXAPARIN SODIUM SQ SCH (15:08)
[2020-01-29] MEDS: Sodium Chloride 0.9% 1000 ML 1,000 ML IV SCH (22:37)
[2020-01-29] MEDS: Norco 10/325 MG Tablet PO SCH (22:37)
[2020-01-29] MEDS: REQUIP 2MG TAB PO SCH (22:37)
[2020-01-30 07:07] LABS: Hematocrit 32.6 % (35-47); Hemoglobin 9.8 gm/dl (12.0-16.0); Mean Cell Volume 95.3 fl (78-100); Mean Corpuscular Hemoglobin 28.7 pg (26-32); Mean Corpuscular Hgb Concent. 30.1 g/dl (32-36); Mean Platelet Volume 10.6 fl (7.5-11.0); Platelet Count 218 K/mm3 (150-450); Red Blood Count 3.42 M/mm3 (4.1-5.4); Red Cell Distribution Width 16.6 % (11.5-14.0); White Blood Count 4.3 K/mm3 (4.0-10.5)
[2020-01-30 07:18] LABS: ALBUMIN 3.5 g/dL (3.5-5.0); ANION GAP 11.4 MEQ/L (5-15); BILIRUBIN,TOTAL 0.3 mg/dL (0.2-1.3); Calcium 8.8 mg/dL (8.4-10.2); Creatinine 1 1.1 mg/dL (0.52-1.04); EST GLOMERULAR FILTRATION RATE 51.6 ML/MIN; Potassium 4.8 mmol/L (3.5-5.1); Total Protein 6.6 g/dL (6.3-8.2)
[2020-01-30 07:38] LABS: Lymphocytes 17 % (24-44); Neutrophils 83 % (36.0-66.0); Platelet Estimate NORMAL (NORMAL); Total Cells Counted 100
--- NOTE | 2020-01-30 07:57 | PCM.NOTE ---
Date and Time: 01/30/20 0756 Subjective Assessment: doing better, still short of breath , O2 sats are in low 80s - Review of Systems Constitutional: No Fever, No Chills Eyes: No Symptoms Ears, Nose, & Throat: No Symptoms Respiratory: Orthopnea, Short Of Breath, No Cough Cardiac: No Chest Pain, No Edema, No Syncope Abdominal/Gastrointestinal: No Abdominal Pain, No Nausea, No Vomiting, No Diar kg Genitourinary Symptoms: No Dysuria Musculoskeletal: No Back Pain, No Neck Pain Skin: No Rash Neurological: No Dizziness, No Focal Weakness, No Sensory Changes Psychological: No Symptoms Endocrine: No Symptoms Hematologic/Lymphatic: No Symptoms Immunological/Allergic: No Symptoms Objective Exam General Appearance: no apparent distress, alert Neurologic Exam: alert, oriented x 3, cooperative, normal mood/affect, nml cerebellar function, sensation nml, No motor deficits Skin Exam: normal color, warm, dry Eye Exam: PERRL, EOMI, eyes nml inspection Ears, Nose, Throat Exam: normal ENT inspection, pharynx normal, moist mucous membranes Neck Exam: normal inspection, non-tender, supple, full range of motion Respiratory Exam: diminished breath sounds, crackles/rales, rhonchi, wheezing, No respiratory distress Cardiovascular Exam: regular rate/rhythm, normal heart sounds Gastrointestinal/Abdomen Exam: soft, No tenderness, No mass Extremity Exam: normal inspection, normal range of motion Back Exam: normal inspection, normal range of motion, No CVA tenderness, No vertebral tenderness Pelvic Exam: deferred Rectal Exam: deferred OBJECTIVE DATA Vital Signs: Vital Signs - 24 hr Temp Pulse Resp BP Pulse Ox 01/30/20 05:44 60 20 92 L 01/30/20 04:00 97.8 F 72 20 122/65 93 L 01/30/20 01:46 67 19 92 L 01/29/20 23:36 98.8 F 72 22 115/56 93 L 01/29/20 23:00 20 01/29/20 22:09 79 20 93 L 01/29/20 20:03 97.8 F 75 24 105/64 92 L 01/29/20 19:50 75 20 01/29/20 18:59 18 01/29/20 17:49 73 18 01/29/20 17:00 21 01/29/20 16:00 98.3 F 75 18 116/65 01/29/20 15:00 21 01/29/20 14:00 73 21 92 L 01/29/20 12:53 18 01/29/20 12:00 68 18 91 L 01/29/20 11:00 18 01/29/20 09:45 66 91 L 01/29/20 08:54 18 01/29/20 08:26 74 18 85 L Oxygen-Last 24 hours Oxygen Flowrate (L/min)-RT 40 Oxygen Flowrate (L/min)-RT 2 Pain Assessment - Last Documented Pain Intensity 0 Pain Scale Used 0-10 Pain Scale Intake and Output: Intake & Output 01/27/20 01/28/20 01/29/20 01/30/20 11:59 11:59 11:59 11:59 Intake Total 1101 2007 Output Total 1000 1000 Balance 101 1008 Weight 97.3 kg Lab Results: Lab Results-Last 24 Hours 01/30/20 01/30/20 01/30/20 Range/Units 05:55 05:55 05:55 WBC 4.3 (4.0-10.5) K/mm3 RBC 3.42 L (4.1-5.4) M/mm3 Hgb 9.8 L (12.0-16.0) gm/dl Hct 32.6 L (35-47) % MCV 95.3 (78-100) fl MCH 28.7 (26-32) pg MCHC 30.1 L (32-36) g/dl RDW 16.6 H (11.5-14.0) % Plt Count 218 (150-450) K/mm3 MPV 10.6 (7.5-11.0) fl Segmented Neutrophils 83 H (36.0-66.0) % Lymphocytes (Manual) 17 L (24-44) % Platelet Estimate NORMAL (NORMAL) RBC Morphology NORMAL D-Dimer 430 (215-500) ng/mL Sodium 141 (137-145) mmol/L Potassium 4.8 (3.5-5.1) mmol/L Chloride 110 H (98-107) mmol/L Carbon Dioxide 24 (22-30) mmol/L Anion Gap 11.4 (5-15) MEQ/L BUN 35 H (7-17) mg/dL Creatinine 1.10 H (0.52-1.04) mg/dL Estimated GFR 51.6 ML/MIN Glucose 161 H (74-106) mg/dL Calcium 8.8 (8.4-10.2) mg/dL Total Bilirubin 0.30 (0.2-1.3) mg/dL AST 23 (14-36) U/L ALT 14 (0-35) U/L Alkaline Phosphatase 77 (38-126) U/L Serum Total Protein 6.6 (6.3-8.2) g/dL Albumin 3.5 (3.5-5.0) g/dL Radiology Exams: Radiology Procedures Category Date Time Status CHEST 1 VIEW (PORTABLE) Stat Exams 01/28/20 14:46 Completed Multi-Disciplinary Progress Notes: Multi-Disciplinary Progress Notes 01/29/20 10:24 Case Management Note by Mavis Gomez PLAN REVIEWED IN CHART. NO LAYCAREGIVER ASSIGNED PER PATIENT. NORMALLY PATIENT LIVES AT HOME WITH SPOUSE, IS A&OX3. PT HAS ACCESS TO TRANSPORTATION AND HAS MEANS TO OBTAIN MEDICATIONS. AT THIS TIME NO KNOWN SERVICES OR DME NEEDED. PLAN TO D/C HOME. WILL CONTINUE TO FOLLOW FOR ALL D/C NEEDS. Initialized on 01/29/20 10:24 - END OF NOTE Assessment/Plan (1) Pneumonia due to COVID-19 virus Current Visit: Yes Status: Acute Assessment & Plan: Chief Complaint Diagnosis COVID+, GASTRITIS, hypoxia, SOB Allergies Allergy/AdvReac Type Severity Reaction Status Date / Time Penicillins Allergy Verified 01/28/20 13:30 Vital Signs (Last 24 hours) Temp Pulse Resp BP Pulse Ox 01/30/20 05:44 60 20 92 L 01/30/20 04:00 97.8 F 72 20 122/65 93 L 01/30/20 01:46 67 19 92 L 01/29/20 23:36 98.8 F 72 22 115/56 93 L 01/29/20 23:00 20 01/29/20 22:09 79 20 93 L 01/29/20 20:03 97.8 F 75 24 105/64 92 L 01/29/20 19:50 75 20 01/29/20 18:59 18 01/29/20 17:49 73 18 01/29/20 17:00 21 01/29/20 16:00 98.3 F 75 18 116/65 01/29/20 15:00 21 01/29/20 14:00 73 21 92 L 01/29/20 12:53 18 01/29/20 12:00 68 18 91 L 01/29/20 11:00 18 01/29/20 09:45 66 91 L 01/29/20 08:54 18 01/29/20 08:26 74 18 85 L Home Medications Medication Instructions Recorded Confirmed Last Taken Type Potassium Chloride 10 Meq Tab* 10 meq PO DAILY 01/28/20 01/28/20 Unknown History [Klor Con 10 MEQ] Carbidopa/Levodopa 1 tab PO BID 01/29/20 01/29/20 Unknown History [Carbidopa-Levodopa 25-100 Tab] Current Medications Generic Name Dose Route Start Last Admin Trade Name Freq PRN Reason Stop Dose Admin Hydrocodone Bitart/Acetaminophen 1 tab 01/28/20 22:42 [place] 10/325 Mg Tablet PO 02/02/20 22:41 Q6H PRN PRN PAIN Hydrocodone Bitart/Acetaminophen 1 tab 01/28/20 22:00 01/29/20 22:37 [place] 10/325 Mg Tablet PO 02/02/20 21:59 1 tab HS SHAILA Administration Allopurinol 300 mg 01/29/20 10:00 01/29/20 09:10 Zyloprim 300 Mg PO 02/28/20 09:59 300 mg DAILY SHAILA Administration Aspirin 81 mg 01/29/20 10:00 01/29/20 09:09 Ecotrin 81 Mg PO 02/28/20 09:59 81 mg DAILY SHAILA Administration Benazepril HCl 10 mg 01/29/20 10:00 01/29/20 09:10 Lotensin 10 Mg PO 02/28/20 09:59 10 mg DAILY SHAILA Administration Carvedilol 6.25 mg 01/28/20 22:00 01/29/20 22:37 Coreg 6.25 Mg PO 02/27/20 21:59 6.25 mg BID SHAILA Administration Dexamethasone Sodium Phosphate 4 mg 01/28/20 22:00 01/29/20 22:36 Decadron 4 Mg Inj IV 02/27/20 21:59 4 mg Q12H SHAILA Administration Diphenoxylate HCl/Atropine 2 tablet 01/28/20 22:40 01/29/20 09:16 Lomotil PO 02/27/20 22:39 2 tablet Q4H PRN PRN Administration DIARRHEA Enoxaparin Sodium 60 mg 01/29/20 14:00 01/29/20 15:08 Enoxaparin Sodium SQ 02/28/20 13:59 60 mg DAILY SHAILA Administration Furosemide 40 mg 01/29/20 10:00 01/29/20 09:11 Lasix 40 Mg PO 02/28/20 09:59 Not Given DAILY SHAILA Hydrochlorothiazide 12.5 mg 01/29/20 10:00 01/29/20 09:09 Hydrodiuril 25 Mg PO 02/28/20 09:59 12.5 mg DAILY SHAILA Administration Sodium Chloride 1,000 mls @ 45 mls/hr 01/28/20 22:45 01/29/20 22:37 Sodium Chloride 0.9% 1000 Ml IV 02/27/20 22:44 45 mls/hr .[id number] SHAILA Administration Remdesivir 100 mg/ Sodium 100 mls @ 100 mls/hr 01/29/20 16:00 01/29/20 15:08 Chloride IV 02/01/20 16:59 100 mls/hr Q24H SHAILA Administration Sildenafil 20mg 1 tab 01/29/20 10:00 01/29/20 22:36 Tablet PO 02/28/20 09:59 1 tab TID SHAILA Administration Potassium Chloride 10 meq 01/29/20 10:00 01/29/20 09:10 [place] 10 Meq PO 02/28/20 09:59 10 meq DAILY SHAILA Administration Ropinirole HCl 3 mg 01/28/20 22:00 01/29/20 22:37 Requip 2mg Tab PO 02/27/20 21:59 3 mg HS SHAILA Administration Discontinued Medications Generic Name Dose Route Start Last Admin Trade Name Freq PRN Reason Stop Dose Admin Acetaminophen 650 mg 01/28/20 17:27 01/28/20 17:37 Tylenol 325 Mg PO 01/28/20 17:28 650 mg STAT STA Administration Acetaminophen Confirm 01/28/20 17:36 Tylenol 325 Mg Administered 01/28/20 17:37 Dose 650 mg .ROUTE .STK-MED ONE Sodium Chloride 1,000 mls @ 999 mls/hr 01/28/20 13:17 01/28/20 16:18 Sodium Chloride 0.9% 1000 Ml IV 01/28/20 14:17 Infused .Q1H1M STA Infusion Sodium Chloride Confirm 01/28/20 13:25 Sodium Chloride 0.9% 1000 Ml Administered 01/28/20 13:26 Dose 1,000 mls @ ud .ROUTE .STK-MED ONE Sodium Chloride 1,000 mls @ 999 mls/hr 01/28/20 15:36 01/28/20 17:41 Sodium Chloride 0.9% 1000 Ml IV 01/28/20 16:36 Infused .Q1H1M STA Infusion Sodium Chloride Confirm 01/28/20 16:19 Sodium Chloride 0.9% 1000 Ml Administered 01/28/20 16:20 Dose 1,000 mls @ ud .ROUTE .STK-MED ONE Remdesivir 200 mg/ Sodium 250 mls @ 125 mls/hr 01/28/20 22:38 01/28/20 23:34 Chloride IV 01/29/20 00:37 125 mls/hr ONCE ONE Administration Sodium Chloride Confirm 01/28/20 22:58 Sodium Chloride 0.9% 250 Ml Administered 01/28/20 22:59 Dose 250 mls @ ud IV .STK-MED ONE Remdesivir Confirm 01/28/20 22:59 Remdesivir Administered 01/28/20 23:00 Dose 200 mg IV .STK-MED ONE Intake & Output (Last 24 hours) 01/27/20 01/28/20 01/29/20 01/30/20 11:59 11:59 11:59 11:59 Intake Total 1101 2008 Output Total 1000 1000 Balance 101 1008 Weight 97.3 kg Microbiology Results (Last 24 hours) 01/28/20 13:45 Blood Blood Culture Gram Stain - Pending 01/28/20 13:45 Blood Blood Culture - Preliminary NO GROWTH TO DATE Laboratory Results (Last 24 hours) 01/30/20 01/30/20 01/30/20 05:55 05:55 05:55 WBC 4.3 RBC 3.42 L Hgb 9.8 L Hct 32.6 L MCV 95.3 MCH 28.7 MCHC 30.1 L RDW 16.6 H Plt Count 218 MPV 10.6 Segmented Neutrophils 83 H Lymphocytes (Manual) 17 L Platelet Estimate NORMAL RBC Morphology NORMAL D-Dimer 430 Sodium 141 Potassium 4.8 Chloride 110 H Carbon Dioxide 24 Anion Gap 11.4 BUN 35 H Creatinine 1.10 H Estimated GFR 51.6 Glucose 161 H Calcium 8.8 Total Bilirubin 0.30 AST 23 ALT 14 Alkaline Phosphatase 77 Serum Total Protein 6.6 Albumin 3.5 Orders (Last 24 hours) Category Date Time Status House Regular Diet Diet 01/29/20 Breakfast Active CBC W DIFF AM.LAB Lab 01/30/20 05:55 Completed CMP AM.LAB Lab 01/30/20 05:55 Completed D-DIMER QUANTITATIVE Routine Lab 01/30/20 05:55 Completed Manual Differential NC Routine Lab 01/30/20 05:55 Completed Allopurinol 300 mg [Zyloprim 300 mg] Med 01/29/20 10:00 Active 300 mg PO DAILY Aspirin EC 81 mg [Ecotrin 81 mg] Med 01/29/20 10:00 Active 81 mg PO DAILY Benazepril HCl 10 mg [Lotensin 10 MG] Med 01/29/20 10:00 Active 10 mg PO DAILY Enoxaparin Sodium [Enoxaparin Sodium] Med 01/29/20 14:00 Active 60 mg SQ DAILY Furosemide 40 mg [Lasix 40 MG] Med 01/29/20 10:00 Active 40 mg PO DAILY Hydrochlorothiazide 25 mg [hydroDIURIL 25 MG] Med 01/29/20 10:00 Active 12.5 mg PO DAILY Potassium Chloride 10 Meq Tab* [Klor Con 10 MEQ] Med 01/29/20 10:00 Active 10 meq PO DAILY Remdesivir 100 mg Med 01/29/20 16:00 Active NaCl 0.9% 100Ml [Sodium Chloride 0.9% 100 ML IVPB] 100 ml IV Q24H Sildenafil Citrate [Revatio] Med 01/29/20 10:00 Active 1 tab PO TID Pulse Oximetry .continuos RT 01/29/20 21:00 Active Patient Care Notes (Last 24 hours) 01/29/20 17:28 Nursing Note by Esdras Villeda Patient informed A Mercedes SALCEDO that she has no home needs after discharge. States has family to help take care of her. Initialized on 01/29/20 17:28 - END OF NOTE 01/29/20 10:33 Nursing Note by Charline Rojas pt placed on RA and o2sat down to 85%-placed back on2L and o2sat back up to 94% Initialized on 01/29/20 10:33 - END OF NOTE 01/29/20 10:24 Case Management Note by Mavis Gomez PLAN REVIEWED IN CHART. NO LAYCAREGIVER ASSIGNED PER PATIENT. NORMALLY PATIENT LIVES AT HOME WITH SPOUSE, IS A&OX3. PT HAS ACCESS TO TRANSPORTATION AND HAS MEANS TO OBTAIN MEDICATIONS. AT THIS TIME NO KNOWN SERVICES OR DME NEEDED. PLAN TO D/C HOME. WILL CONTINUE TO FOLLOW FOR ALL D/C NEEDS. Initialized on 01/29/20 10:24 - END OF NOTE 01/29/20 10:01 Nursing Note by Esdras Villeda Unknown if patient has any home needs at this time. Patient still on o2 and discharge to home date not known at this time. Initialized on 01/29/20 10:01 - END OF NOTE Code(s): U07.1 - COVID-19; J12.89 - OTHER VIRAL PNEUMONIA (2) Hypertension Current Visit: Yes Status: Acute Qualifiers: Hypertension type: essential hypertension Qualified Code(s): I10 - Essential (primary) hypertension Code(s): I10 - ESSENTIAL (PRIMARY) HYPERTENSION
[2020-01-30] MEDS: Klor Con 10 MEQ PO SCH (11:19)
[2020-01-30] MEDS: Coreg 6.25 MG PO SCH ×2 (11:19→22:09)
[2020-01-30] MEDS: ZYLOPRIM 300 MG PO SCH (11:20)
[2020-01-30] MEDS: Lotensin 10 MG PO SCH (11:20)
[2020-01-30] MEDS: hydroDIURIL 25 MG PO SCH (11:20)
[2020-01-30] MEDS: Lasix 40 MG PO SCH (11:20)
[2020-01-30] MEDS: ECOTRIN 81 MG PO SCH (11:20)
[2020-01-30] MEDS: Decadron 4 MG INJ IV SCH ×2 (11:22→22:08)
[2020-01-30] MEDS: ENOXAPARIN SODIUM SQ SCH (11:22)
[2020-01-30] MEDS: SILDENAFIL CITRATE PO SCH ×3 (11:24→22:09)
[2020-01-30] MEDS ORDERED: Colace 100 MG PO PRN (14:43)
[2020-01-30] MEDS: REMDESIVIR 100 MG in Sodium Chloride 0.9% 100 ML IVPB 100 ML IV SCH (15:42)
[2020-01-30] MEDS ORDERED: Sinemet 25/100 MG PO SCH (22:00)
[2020-01-30] MEDS: REQUIP 2MG TAB PO SCH (22:07)
[2020-01-30] MEDS: Norco 10/325 MG Tablet PO SCH (22:08)
[2020-01-30] MEDS: Sodium Chloride 0.9% 1000 ML 1,000 ML IV SCH (22:08)
[2020-01-31 05:44] LABS: INR 1.13 (0.8-3.0); PROTIME 12.8 SECONDS (9.95-12.35)
[2020-01-31 05:51] LABS: ALBUMIN 3.3 g/dL (3.5-5.0); ALKALINE PHOSPHATASE 88 U/L (38-126); ANION GAP 11.2 MEQ/L (5-15); BLOOD UREA NITROGEN 38 mg/dL (7-17); CHLORIDE 109 mmol/L (98-107); Calcium 8.7 mg/dL (8.4-10.2); Carbon Dioxide 24 mmol/L (22-30); Creatinine 1 0.89 mg/dL (0.52-1.04); EST GLOMERULAR FILTRATION RATE > 60.0 ML/MIN; Glucose 153 mg/dL (74-106); Potassium 4.4 mmol/L (3.5-5.1); SGOT/AST 29 U/L (14-36); SGPT/ALT 8 U/L (0-35); SODIUM 140 mmol/L (137-145); Total Protein 6.3 g/dL (6.3-8.2)
[2020-01-31 07:30] VITALS: BP 112/50; PULSE 57
[2020-01-31 07:36] VITALS: O2SAT 92
[2020-01-31] MEDS: Decadron 4 MG INJ IV SCH (08:39)
[2020-01-31] MEDS: Coreg 6.25 MG PO SCH (08:39)
[2020-01-31] MEDS: ECOTRIN 81 MG PO SCH (08:39)
[2020-01-31] MEDS: ENOXAPARIN SODIUM SQ SCH (08:40)
[2020-01-31] MEDS: hydroDIURIL 25 MG PO SCH (08:40)
[2020-01-31] MEDS: Klor Con 10 MEQ PO SCH (08:40)
[2020-01-31] MEDS: Lasix 40 MG PO SCH (08:40)
[2020-01-31] MEDS: ZYLOPRIM 300 MG PO SCH (08:41)
[2020-01-31] MEDS: Lotensin 10 MG PO SCH (08:41)
[2020-01-31] MEDS: SILDENAFIL CITRATE PO SCH (08:41)
== END 2020-01-31 09:52 | disposition home or self-care (01) | DRG 177 ==
LOC: ED 13:12 → MED SURG 21:38 → OBSVTOIN 21:38
PROVIDERS: ADMIT Family Medicine; ATTEND Family Medicine
DX: U07.1 COVID-19 (principal); J12.89 Other viral pneumonia; R53.83 Other fatigue; R19.7 Diarrhea, unspecified; R06.02 Shortness of breath; Z79.899 Other long term (current) drug therapy; K29.70 Gastritis, unspecified, without bleeding; R09.02 Hypoxemia; I10 Essential (primary) hypertension; Z86.79 Personal history of other diseases of the circulatory system
CPT/HCPCS: 36415; 71045; 80053; 81001; 82150; 83605; 83690; 83735; 84484; 85025; 85379; 85610; 86308; 87040; 87400; 93005; 94762; 96360; 96361; 99285; U0003; J1100; J1650; A9270-GY

== ENCOUNTER 2020-05-10 08:00 | Day surgery (SDC) | payer MEDICARE, OTHER ==
[2011-09-28 09:51] VITALS: BP 180/94
[2020-05-10] MEDS ORDERED: Depo-Medrol 40 MG/ML IM ONE (08:01)
[2020-05-10] MEDS ORDERED: Sodium Chloride 0.9(Preservative Free) 10 ML IJ ONE (08:01)
[2020-05-10] MEDS ORDERED: DIPRIVAN 200 MG/20 ML IV ONE (08:41)
[2020-05-10] MEDS ORDERED: Ketamine HCl 50 MG/ML ONE (08:42)
--- NOTE | 2020-05-10 10:06 | XRAY ---
Indication: Right L4-S1 transforaminal ANGI. Intraoperative fluoroscopy provided for 33 seconds. 4 digital spot images submitted for interpretation demonstrates posterior needle tips projecting over the right L4 and L5 nerve roots. Small amount of contrast injected for needle tip placement. Correlate with intraoperative findings/report.
--- NOTE | 2020-05-10 13:00 | XRAY ---
33 seconds fluoroscopy time in surgery for right L4-S1 transforaminal ANGI.
[2020-05-10] MEDS ORDERED: Lactated Ringers 1,000 ML IV ONE (14:32)
== END 2020-05-10 09:37 | disposition home or self-care (01) ==
LOC: SDC-PAIN 08:00
PROVIDERS: ATTEND Psychiatry & Neurology Pain Medicine
DX: M54.16 Radiculopathy, lumbar region (principal); I27.20 Pulmonary hypertension, unspecified; E78.00 Pure hypercholesterolemia, unspecified; Z79.899 Other long term (current) drug therapy
CPT/HCPCS: 64483; 64484; 72100; 77003; 99100; J1030; J2704; Q9966

== ENCOUNTER 2020-08-02 09:46 | Day surgery (SDC) | payer MEDICARE, OTHER ==
[2011-09-28 09:51] VITALS: BP 180/94
[2020-08-02] MEDS ORDERED: BUPIVACAINE 0.5% VIAL IJ ONE (09:47)
[2020-08-02] MEDS ORDERED: Depo-Medrol 40 MG/ML IM ONE (09:47)
[2020-08-02] MEDS ORDERED: DIPRIVAN 200 MG/20 ML IV ONE (11:52)
[2020-08-02] MEDS ORDERED: Lactated Ringers 1,000 ML IV ONE (16:28)
--- NOTE | 2020-08-03 11:44 | XRAY ---
6 seconds fluoroscopy time in surgery for intra-articular injection of the left knee.
== END 2020-08-02 12:14 | disposition home or self-care (01) ==
LOC: SDC-PAIN 09:46
PROVIDERS: ATTEND Psychiatry & Neurology Pain Medicine
DX: M17.12 Unilateral primary osteoarthritis, left knee (principal); I50.9 Heart failure, unspecified; E78.5 Hyperlipidemia, unspecified; I10 Essential (primary) hypertension; Z79.899 Other long term (current) drug therapy
CPT/HCPCS: 20610; 73560; 77002; J1030; J2704; Q9966

== ENCOUNTER 2020-11-14 06:56 | Day surgery (SDC) | payer MEDICARE, OTHER ==
[2020-11-14] MEDS ORDERED: Lactated Ringers 1,000 ML IV SCH (07:00)
[2020-11-14] MEDS ORDERED: Sodium Chloride 0.9% 1000 ML 1,000 ML ONE (07:42)
[2020-11-14] MEDS ORDERED: Versed 2 MG/2 ML Injection ONE (08:35)
[2020-11-14] MEDS ORDERED: SUBLIMAZE 100 MCG/2 ML ONE (08:35)
[2020-11-14] MEDS ORDERED: Zofran 4 MG/2 ML VIAL ONE (08:36)
[2020-11-14] MEDS ORDERED: TORAdol 30 mg Injection ONE (08:36)
[2020-11-14] MEDS ORDERED: DIPRIVAN 200 MG/20 ML IV ONE (08:36)
[2020-11-14] MEDS ORDERED: Decadron 4 MG INJ ONE (08:36)
[2020-11-14] MEDS ORDERED: Quelicin Fliptop 200 MG/10 ML ONE (08:37)
[2020-11-14] MEDS ORDERED: TYLENOL 325 MG PO PRN (10:13)
[2020-11-14 10:42] VITALS: O2SAT 96
[2020-11-14 10:56] VITALS: BP 142/88; PULSE 74
--- NOTE | 2020-11-15 08:34 | OP ---
SURGERY DATE/TIME: 11/14/2020 0843 PREOPERATIVE DIAGNOSIS: Thickened endometrium. POSTOPERATIVE DIAGNOSIS: Thickened endometrium with an endometrial polyp. PROCEDURE: Hysteroscopic MyoSure removal of endometrial polyp with D&C. SURGEON: Steve Carlton D.O. CUTTER FIRST: Jose Tanner instructor adjunct pharmacy technician. ANESTHESIA: General. ESTIMATED BLOOD LOSS: Minimal. COMPLICATIONS: None. INDICATIONS: The risks, benefits, indications and alternatives of the procedure were reviewed with the patient prior to the procedure. The patient understood the risk of infection, bleeding, bowel injury, bladder injury, ureteral injury, uterine perforation associated with the surgery and desires to have this surgery as a possible means to alleviate her current medical condition. DESCRIPTION OF PROCEDURE AND FINDINGS: At this point the patient is taken to the operating room, given general sedation, placed in dorsal lithotomy position, prepped and draped in the usual sterile fashion. A weighted speculum is then placed in the patient's vagina and the anterior lip of the cervix was grasped with a single tooth tenaculum. Endocervical dilators were advanced through the endocervical canal as a means to dilate the cervix and the uterus was sounded to approximately 9 cm. From this point a hysteroscope was then placed in the fundus of the uterus where visualization appeared her to have an endometrial polyp located posteriorly and laterally where at this point it was determined to use the MyoSure. The MyoSure instrument was then placed through the channel of the hysteroscope and was used to excise and remove the polyp and was done so without complication. From this point the hysteroscope was removed and curette was then placed into the fundus of the uterus and curettage performed in all quadrants of the uterus retrieving a mild to moderate amount of endometrial tissue. From this point hemostasis obtained. From this point all instruments were removed from the patient's vaginal region. The patient was then taken out of dorsal lithotomy position and was taken out of anesthesia and was then taken to the recovery room in stable condition. All instruments and laps were accounted for x2.
== END 2020-11-14 10:56 | disposition home or self-care (01) ==
LOC: SDC 06:56
PROVIDERS: ATTEND Obstetrics & Gynecology
DX: R93.89 Abnormal findings on diagnostic imaging of other specified body structures (principal); N84.0 Polyp of corpus uteri; Z79.899 Other long term (current) drug therapy
CPT/HCPCS: 58558; 88305; J0330; J1100; J1885; J2250; J2405; J2704; J3010; A9270-GY

== ENCOUNTER 2020-11-17 17:31 | Emergency (ER) | payer MEDICARE, OTHER ==
[2020-11-17 20:04] LABS: Appearance CLOUDY (CLEAR); Bacteria MODERATE /HPF (NEGATIVE); Bilirubin NEGATIVE (NEGATIVE); Blood MODERATE Ery/ul (0-5); Glucose NEGATIVE (NEGATIVE); Ketones NEGATIVE (NEGATIVE); Leukocyte Esterase MODERATE (NEGATIVE); Nitrite POSITIVE (NEGATIVE); Protein,Urine Dip 100 (Negative); Specific Gravity 1.015 (1.005-1.025); Urobilinogen NEGATIVE mg/dL (0-1)
[2020-11-17 20:09] LABS: RBC >101 /HPF (0-2)
[2020-11-17] MEDS ORDERED: Macrobid 100MG Capsule PO ONE (20:14)
[2020-11-17] MEDS ORDERED: PYRIDIUM 200 MG PO STA (20:14)
[2020-11-17] MEDS ORDERED: Macrobid 100MG Capsule ONE (20:17)
[2020-11-17] MEDS ORDERED: PYRIDIUM 200 MG ONE (20:17)
--- NOTE | 2020-11-17 20:20 | ERPHSYRPT ---
- History of Present Illness Time Seen by Provider: 11/17/20 18:05 Source: patient Patient Subjective Stated Complaint: UTI sx, pressure in lower abd and pelvic region, frequency Triage Nursing Assessment: pt to ED c/o UTI sx starting today this afternoon. reports lower abd and pelvic pressure and urinary frequency. pt reports having D&C done by Dr Carlton on 11/14/20 and has had mild spotting following that procedure, which was to be expected as reported. rates 6/10 pressure. Physician History: Patient is a 75-year-old female who presents with a complaint of urgency frequency and voiding small amounts. She also has dysuria. She did have a D&C by Dr. Carlton 2 days ago and had been doing well until the sudden onset of symptoms this evening. She denies any fever or sweats but she has had some chills. Allergies/Adverse Reactions: Penicillins Allergy (Verified 11/17/20 18:03) Home Medications: Carvedilol 6.25 mg [Coreg 6.25 MG] 6.25 mg PO BID 03/18/13 [History] Allopurinol 300 mg [Zyloprim 300 mg] 300 mg PO DAILY 06/11/16 [History] Aspirin [Aspirin EC] 81 mg PO DAILY 06/11/16 [History] Furosemide 40 mg [Lasix 40 MG] 40 mg PO DAILY PRN 06/11/16 [History] Ropinirole HCl [Requip] 3 mg PO HS 10/28/16 [History] Sildenafil Citrate [Revatio] 20 mg PO TID 11/01/16 [History] Carbidopa/Levodopa [Carbidopa-Levodopa 25-100 Tab] 1 tab PO BID 01/29/20 [History] Ergocalciferol (Vitamin D2) [Vitamin D2] 50,000 unit PO Q7D 11/10/20 [History] Hydrocodone/Acetaminophen [Hydrocodone-Acetamin 7.5-325] 1 each PO Q8HPRN PRN 11/10/20 [History] Acetaminophen 325 mg [Tylenol 325 mg] 2 tab PO Q6H PRN PRN 11/14/20 [History] Benazepril/Hydrochlorothiazide [Lotensin Hct 20-12.5 mg Tablet] 1 each PO DAILY 11/14/20 [History] Potassium Citrate [Potassium Citrate ER] 10 meq PO BID 11/17/20 [History] Hx Tetanus, Diphtheria Vaccination/Date Given: Yes Hx Influenza Vaccination/Date Given: Yes Hx Pneumococcal Vaccination/Date Given: Yes Travel Risk - International Travel Have you traveled outside of the country in past 3 weeks: No - Coronavirus Screening Are you exhibiting any of the following symptoms?: No Close contact with a COVID-19 positive Pt in past 14-21 Days: No - Vaccine Status Have you recieved a Covid-19 vaccination: No - Review of Systems Constitutional: No Fever, No Chills Eyes: No Symptoms Ears, Nose, & Throat: No Symptoms Respiratory: No Cough, No Dyspnea Cardiac: No Chest Pain, No Edema, No Syncope Abdominal/Gastrointestinal: No Abdominal Pain, No Nausea, No Vomiting, No Diarrhea Genitourinary Symptoms: Dysuria, Frequency, Urgency Musculoskeletal: No Back Pain, No Neck Pain Skin: No Rash Neurological: No Dizziness, No Focal Weakness, No Sensory Changes Psychological: No Symptoms Endocrine: No Symptoms All Other Systems: Reviewed and Negative - Past Medical History Pertinent Past Medical History: Yes Neurological History: No Pertinent History ENT History: No Pertinent History Cardiac History: Myocardial Infarction ([place]) Respiratory History: CHF Endocrine Medical History: No Pertinent History Musculoskeletal History: Osteoarthritis GI Medical History: No Pertinent History History: Other Psycho-Social History: No Pertinent History Female Reproductive Disorders: No Pertinent History Other Medical History: KIDNEY STONES,UTI - Past Surgical History Past Surgical History: Yes Neuro Surgical History: No Pertinent History Cardiac: Cardiac Catheterization Respiratory: No Pertinent History Gastrointestinal: Appendectomy, Cholecystectomy Genitourinary: Other Musculoskeletal: Joint Replacement Female Surgical History: Tubal Ligation Other Surgical History: D&C, RIGHT KNEE REPLACEMENT, TONSILLECTOMY. D&C 2020 - Social History Smoking Status: Never smoker Exposure to second hand smoke: No Alcohol Use: None Drug Use: none Patient Lives Alone: No Significant Family History: heart disease, hypertension - Female History Hx Now: No - Nursing Vital Signs Nursing Vital Signs: Initial Vital Signs Temperature 97.4 F 11/17/20 17:54 Pulse Rate 110 H 11/17/20 17:54 Respiratory Rate 20 11/17/20 17:54 Blood Pressure 169/91 11/17/20 17:54 O2 Sat by Pulse Oximetry 97 11/17/20 17:54 Pain Scale Pain Intensity 6 - Physical Exam General Appearance: mild distress, alert Eye Exam: PERRL/EOMI, eyes nml inspection Ears, Nose, Throat Exam: normal ENT inspection, TMs normal, pharynx normal, moist mucous membranes Neck Exam: normal inspection, non-tender, supple, full range of motion Respiratory Exam: normal breath sounds, lungs clear, No respiratory distress Cardiovascular Exam: regular rate/rhythm, normal heart sounds, normal peripheral pulses Gastrointestinal/Abdomen Exam: soft, No tenderness, No mass Back Exam: normal inspection, normal range of motion, No CVA tenderness, No vertebral tenderness Extremity Exam: normal inspection, normal range of motion, pelvis stable Neurologic Exam: alert, oriented x 3, cooperative, colon therapist II-XII nml as tested, normal mood/affect, sensation nml, No motor deficits Skin Exam: normal color, warm, dry Lymphatic Exam: No adenopathy SpO2: 97 - Course Nursing assessment & vital signs reviewed: Yes Ordered Tests: Active Orders 24 hr Category Date Time Status CULTURE,URINE Stat Lab 11/17/20 19:04 Received UA W/RFX UR CULTURE Stat Lab 11/17/20 19:04 Completed Medication Summary Generic Name Dose Route Start Last Admin Trade Name Freq PRN Reason Stop Dose Admin Nitrofurantoin Macrocrystals 100 mg 11/17/20 20:14 Macrobid 100mg Capsule PO 11/17/20 20:15 STAT ONE Phenazopyridine HCl 200 mg 11/17/20 20:14 Pyridium 200 Mg PO 11/17/20 20:15 ONCE STA Lab/Rad Data: Laboratory Results 11/17/20 Range/Units 19:04 Urine Color YANI (YELLOW) Urine Appearance CLOUDY (CLEAR) Urine pH 6.0 (5-6) Ur Specific [place] 1.015 (1.005-1.025) Urine Protein 100 (Negative) Urine Ketones NEGATIVE (NEGATIVE) Urine Blood MODERATE (0-5) Kwasi/ul Urine Nitrite POSITIVE (NEGATIVE) Urine Bilirubin NEGATIVE (NEGATIVE) Urine Urobilinogen NEGATIVE (0-1) mg/dL Ur Leukocyte Esterase MODERATE (NEGATIVE) Urine WBC (Auto) 16-25 (0-5) /HPF Urine RBC (Auto) >101 (0-2) /HPF Urine Bacteria (Auto) MODERATE (NEGATIVE) /HPF Urine Culture Reflexed YES (NO) Urine Glucose NEGATIVE (NEGATIVE) mg/dL - Progress Progress: improved Air Movement: good Blood Culture(s) Obtained: No Antibiotics given: Yes, No Discussed with DrTina: Other (Dr Carlton) - Departure Departure Disposition: Home Clinical Impression: Urinary tract infection Condition: Stable Critical Care Time: No Referrals: FABI VALENCIA DO [Primary Care Provider] - Instructions: Urinary Tract Infection, Adult (DC) Prescriptions: Nitrofurantoin Macro 100 mg [Macrobid 100MG Capsule] 100 mg PO BID 10 Days #20 cap Phenazopyridine HCl 200 mg [Pyridium 200 mg] 200 mg PO TID #6 tablet
[2020-11-17 20:32] VITALS: BP 135/79; PULSE 78; O2SAT 98
== END 2020-11-17 20:35 | disposition home or self-care (01) ==
LOC: ED 17:31
DX: N39.0 Urinary tract infection, site not specified (principal)
CPT/HCPCS: 81001; 87077; 87086; 87186; 99284; A9270-GY

== ENCOUNTER 2020-12-20 09:46 | Day surgery (SDC) | payer MEDICARE, OTHER ==
[2011-09-28 09:51] VITALS: BP 180/94
[2020-12-20] MEDS ORDERED: BUPIVACAINE 0.5% VIAL IJ ONE (09:47)
[2020-12-20] MEDS ORDERED: Depo-Medrol 40 MG/ML IM ONE (09:47)
[2020-12-20] MEDS ORDERED: Lactated Ringers 1,000 ML IV ONE (10:45)
[2020-12-20] MEDS ORDERED: DIPRIVAN 200 MG/20 ML IV ONE (12:00)
--- NOTE | 2020-12-20 13:00 | XRAY ---
Indication: Right greater trochanter bursa injection. Intraoperative fluoroscopy provided for 18 seconds. Single digital spot image submitted for interpretation demonstrates needle tip projecting lateral to the right greater trochanter. Small amount of contrast injected for needle tip placement. Correlate with intraoperative findings/report.
--- NOTE | 2020-12-20 13:10 | XRAY ---
18 seconds fluoroscopy time in surgery for injection of the greater trochanteric bursa of the right hip.
== END 2020-12-20 12:27 | disposition home or self-care (01) ==
LOC: SDC-PAIN 09:46
PROVIDERS: ATTEND Psychiatry & Neurology Pain Medicine
DX: M70.61 Trochanteric bursitis, right hip (principal); I50.9 Heart failure, unspecified; I10 Essential (primary) hypertension; Z79.899 Other long term (current) drug therapy
CPT/HCPCS: 20610; 73501; 77002; J1030; J2704; Q9966

== ENCOUNTER 2021-01-17 09:53 | Day surgery (SDC) | payer MEDICARE, OTHER ==
[2011-09-28 09:51] VITALS: BP 180/94
[2021-01-17] MEDS ORDERED: Depo-Medrol 40 MG/ML IM ONE (09:54)
[2021-01-17] MEDS ORDERED: BUPIVACAINE 0.5% VIAL IJ ONE (09:54)
[2021-01-17] MEDS ORDERED: DIPRIVAN 200 MG/20 ML IV ONE (13:12)
[2021-01-17] MEDS ORDERED: Lactated Ringers 1,000 ML IV ONE (13:21)
--- NOTE | 2021-01-17 15:23 | XRAY ---
Indication: Left knee injection. Intraoperative fluoroscopy provided for 11 seconds. Single digital spot image submitted for interpretation demonstrates needle tip projecting over the left femur intercondylar notch. Small amount of contrast injected for needle tip placement. Correlate with intraoperative findings/report.
--- NOTE | 2021-01-17 15:34 | XRAY ---
11 seconds fluoroscopy time in surgery for intra-articular injection of the left knee.
== END 2021-01-17 13:40 | disposition home or self-care (01) ==
LOC: SDC-PAIN 09:53
PROVIDERS: ATTEND Psychiatry & Neurology Pain Medicine
DX: M17.12 Unilateral primary osteoarthritis, left knee (principal); I10 Essential (primary) hypertension; Z79.899 Other long term (current) drug therapy
CPT/HCPCS: 20610; 73560; 77002; J1030; J2704; Q9966

== ENCOUNTER 2021-10-31 14:15 | Day surgery (SDC) | payer MEDICARE ==
[2011-09-28 09:51] VITALS: BP 180/94
[2021-10-31] MEDS ORDERED: Depo-Medrol 40 MG/ML IM ONE (14:16)
[2021-10-31] MEDS ORDERED: Marcaine Mpf 0.5% Vial 30 Ml IJ ONE (14:16)
[2021-10-31] MEDS ORDERED: Lactated Ringers 1,000 ML IV ONE (16:19)
[2021-10-31] MEDS ORDERED: DIPRIVAN 200 MG/20 ML IV ONE (16:51)
--- NOTE | 2021-10-31 19:59 | XRAY ---
Indication: Left knee injection. Intraoperative fluoroscopy provided for 7 seconds. Single digital spot image submitted for interpretation demonstrates needle tip projecting over the left femur intercondylar notch. Small amount of contrast injected for needle tip placement. Correlate with intraoperative findings/report.
--- NOTE | 2021-11-01 08:42 | XRAY ---
7 seconds of fluoroscopy was used in surgery for a left knee intra-articular injection.
== END 2021-10-31 17:15 | disposition home or self-care (01) ==
LOC: SDC-PAIN 14:15
PROVIDERS: ATTEND Psychiatry & Neurology Pain Medicine
DX: M17.12 Unilateral primary osteoarthritis, left knee (principal); Z79.899 Other long term (current) drug therapy
CPT/HCPCS: 20610; 73560; 77002; J1030; J2704; Q9966

== ENCOUNTER 2022-04-27 21:35 | Emergency (ER) | payer MEDICARE, SELFPAY ==
[2022-04-27 21:47] VITALS: BP 171/73; PULSE 87; O2SAT 98
[2022-04-27] MEDS ORDERED: MOTRIN 600 MG PO ONE (21:52)
--- NOTE | 2022-04-27 21:52 | ERPHSYRPT ---
- History of Present Illness Time Seen by Provider: 04/27/22 21:49 Source: patient Exam Limitations: no limitations Patient Subjective Stated Complaint: pt reports sudden onset of pain and swelling to the left ankle. denies injury or accident. Triage Nursing Assessment: pt is aox3, pupils perrl, afebrile, resps easy and non labored, cap refill < 3 seconds, pt skin pink warm dry, moderate swelling to the medial left ankle, no deformity noted. pedal pulses present, sensation, ROM intact. pt is weight bearing with no difficulty. Physician History: pt reports sudden onset of pain and swelling to the left ankle. denies injury or accident. Patient states that she developed this type of pain off and on infrequently. Method of Injury: unknown Occurred: just prior to arrival Quality: constant Severity of Pain-Max: mild Severity of Pain-Current: mild Lower Extremities Pain: ankle: left Modifying Factors: Improves With: nothing Associated Symptoms: none Allergies/Adverse Reactions: Penicillins Allergy (Verified 04/27/22 21:47) Home Medications: Carvedilol [Coreg ] 6.25 mg PO BID 03/18/13 [History] Allopurinol 300 mg [Zyloprim 300 mg] 300 mg PO DAILY 06/11/16 [History] Aspirin [Aspirin EC] 81 mg PO DAILY 06/11/16 [History] Furosemide 40 mg [Lasix 40 MG] 40 mg PO DAILY PRN 06/11/16 [History] Ropinirole HCl [Requip] 3 mg PO HS 10/28/16 [History] Sildenafil Citrate [Revatio] 20 mg PO TID 11/01/16 [History] Carbidopa/Levodopa [Carbidopa-Levodopa 25-100 Tab] 1 tab PO BID 01/29/20 [History] Ergocalciferol (Vitamin D2) [Vitamin D2] 50,000 unit PO Q7D 11/10/20 [History] Hydrocodone/Acetaminophen [Hydrocodone-Acetamin 7.5-325] 1 each PO Q8HPRN PRN 11/10/20 [History] Acetaminophen 325 mg [Tylenol 325 mg] 2 tab PO Q6H PRN PRN 11/14/20 [History] Benazepril/Hydrochlorothiazide [Lotensin Hct 20-12.5 mg Tablet] 1 each PO DAILY 11/14/20 [History] Potassium Citrate [Potassium Citrate ER] 10 meq PO BID 11/17/20 [History] Hx Tetanus, Diphtheria Vaccination/Date Given: Yes Hx Influenza Vaccination/Date Given: Yes Hx Pneumococcal Vaccination/Date Given: Yes Immunizations Up to Date: Yes Travel Risk - International Travel Have you traveled outside of the country in past 3 weeks: No - Coronavirus Screening Are you exhibiting any of the following symptoms?: No Close contact with a COVID-19 positive Pt in past 14-21 Days: No - Vaccine Status Have you recieved a Covid-19 vaccination: No - Review of Systems Constitutional: No Symptoms Eyes: No Symptoms Ears, Nose, & Throat: No Symptoms Respiratory: No Symptoms Cardiac: No Symptoms Abdominal/Gastrointestinal: No Symptoms Genitourinary Symptoms: No Symptoms Musculoskeletal: Joint Pain (left ankle and foot) Skin: No Symptoms Neurological: No Symptoms Psychological: No Symptoms Endocrine: No Symptoms Hematologic/Lymphatic: No Symptoms Immunological/Allergic: No Symptoms - Past Medical History Pertinent Past Medical History: Yes Neurological History: No Pertinent History ENT History: No Pertinent History Cardiac History: Myocardial Infarction ([place]) Respiratory History: CHF Endocrine Medical History: No Pertinent History Musculoskeletal History: Osteoarthritis GI Medical History: No Pertinent History History: Other Psycho-Social History: No Pertinent History Female Reproductive Disorders: No Pertinent History Other Medical History: KIDNEY STONES,UTI - Past Surgical History Past Surgical History: Yes Neuro Surgical History: No Pertinent History Cardiac: Cardiac Catheterization Respiratory: No Pertinent History Gastrointestinal: Appendectomy, Cholecystectomy Genitourinary: Other Musculoskeletal: Joint Replacement Female Surgical History: Tubal Ligation Other Surgical History: D&C, RIGHT KNEE REPLACEMENT, TONSILLECTOMY. D&C 2020 - Social History Smoking Status: Never smoker Exposure to second hand smoke: No Alcohol Use: None Drug Use: none Patient Lives Alone: No Significant Family History: heart disease, hypertension - Nursing Vital Signs Nursing Vital Signs: Initial Vital Signs Temperature 97.4 F 04/27/22 21:39 Pulse Rate 87 04/27/22 21:39 Respiratory Rate 16 04/27/22 21:39 Blood Pressure 171/73 04/27/22 21:39 O2 Sat by Pulse Oximetry 98 04/27/22 21:39 Pain Scale Pain Intensity 5 - Physical Exam General Appearance: no apparent distress Eyes, Ears, Nose, Throat Exam: normal ENT inspection Neck Exam: normal inspection Cardiovascular/Respiratory Exam: chest non-tender Gastrointestinal/Abdominal Exam: non-tender Back Exam: normal inspection Hips Exam: bilateral: non-tender Legs Exam: bilateral leg: non-tender Knees Exam: bilateral knee: non-tender Ankle Exam: left ankle: pain, soft tissue tenderness, swelling Foot Exam: left foot: pain, soft tissue tenderness, swelling SpO2: 98 - Course Nursing assessment & vital signs reviewed: Yes - Radiology Exams Left Foot X-ray Interpretation: Reviewed by me Left Ankle X-ray Interpretation: Reviewed by me Ordered Tests: Active Orders 24 hr Category Date Time Status ANKLE (3 VIEWS) Stat Exams 04/27/22 21:45 Taken FOOT (MINIMUM 3 VIEWS) Stat Exams 04/27/22 21:45 Taken Medication Summary Discontinued Medications Generic Name Dose Route Start Last Admin Trade Name Freconstantino PRN Reason Stop Dose Admin Ibuprofen 600 mg 04/27/22 21:52 04/27/22 22:01 Ibuprofen 600 Mg Tablet PO 04/27/22 21:53 600 mg STAT ONE Administration Ibuprofen Confirm 04/27/22 22:00 Ibuprofen 600 Mg Tablet Administered 04/27/22 22:01 Dose 600 mg .ROUTE .STK-MED ONE - Progress Progress: improved, pain not gone completely Counseled pt/family regarding: diagnosis, need for follow-up, rad results Medical Desision Making - Discussion of managment Agreed on:: Treatment plan, need for follow-up - Diagnostic Testing Diagnostic test were ordered, analyzed, and reviewed by me: Yes Radiological Interpretation: Interpreted by me, Reviewed by me - Risk of complications Low Risk: Low risk of morbidity from additional dx testing or treatment - Departure Departure Disposition: Home Clinical Impression: Bone spur of ankle, Bone spur of left foot Condition: Stable Critical Care Time: Yes Critical Care Time(excluding separately billable procedures): Critical 30-74 mins Referrals: FABI VALENCIA DO [Primary Care Provider] - Follow up/PCP as directed Instructions: Heel Spurs (DC), Osteoarthritis (DC) Additional Instructions: Discharge/Care Plan CARMINA JAMES was seen on 04/27/22 in the Emergency Room. The patient was counseled regarding Diagnosis,Lab results, Imaging studies, need for follow up and when to return to the Emergency Room. Prescriptions given: Discharge Note I have spoken with the patient and/or caregivers. I have explained the patient's condition, diagnosis and treatment plan based on the information available to me at this time. I have answered the patient's and/or caregiver's questions and addressed any concerns. The patient and/or caregivers have as good understanding of the patient's diagnosis, condition and treatment plan as can be expected at this point. The vital signs have been stable. The patient's condition is stable and appropriate for discharge from the emergency department. The patient will pursue further outpatient evaluation with the primary care physician or other designated or consulting physician as outlined in the discharge instructions. The patient and/or caregivers are agreeable to this plan of care and follow-up instructions have been explained in detail. The patient and/or caregivers have received these instruction. The patient/and or caregivers are aware that any significant change in condition or worsening of symptoms should prompt an immediate return to this or the closest emergency department or call 911. CARMINA JAMES was seen on 04/27/22 n the Emergency Room. At that time you were treated for an emergent condition, during your visit Laboratory, Radiology and/or other procedures may have been ordered. It is very important that you follow-up with your Primary Care Physician FABI VALENCIA DO within the next 24-48 hours to review your Emergency Room visit and the final results of testing that was ordered. Some test results such as Urine Cultures, Blood Cultures, and other cultures if ordered will not be finalized for 24-48 hours. If you do not have a Primary Care Provider please call the medical records department at [phone] ext [phone] to obtain a copy of your results or you may sign into our patient portal to obtain these results by visiting us @ [email or web address] and completing the following steps: 1. Click on the Patient Portal link 2. Click the Patient Self Enrollment Link to complete the enrollment form and entering your 3. Once the enrollment form is completed you will receive an email with a temporary ID and password at the email address you provided. 4. Next choose a user name and password. Your user name must be at least 4 characters long and your password must be at least 4 characters long. 5. Choose a security question from the list and provide your answer to the question. If you already have signed into the Health Portal you may access your Health Care Information 02/09 by the following steps: 1. Login to our website @ [email or web address] 2. Enter your original user name and password. FAQS The [facility] Health Portal is an online tool that contains your Lab Results, Radiology Reports, Visit History, Discharge Instructions and Health Summary Lab and Radiology Results will not be available for 72 hours on the portal. The Portal is a secure site, passwords are encryted and URLs are re-written so they cannot be copied and pasted. You and authorized family members are the only ones who can access your Portal. Also there is a timeout feature that protects your information if you leave the Portal page open. If you have technical difficulty please use the Contact Us link on the page this will allow you to submit any questions you have regarding the Portal or you may contact the Medical Record Department at [phone] ext [phone].
[2022-04-27] MEDS ORDERED: MOTRIN 600 MG ONE (22:00)
--- NOTE | 2022-04-28 08:22 | XRAY ---
Indication: Pain and swelling. No known injury. Comparison: None 3 view left ankle demonstrates osteopenia, mild talotibial degenerative changes, tiny posterior/small plantar heel spurs, and diffuse soft tissue swelling. No other bony, articular, or soft tissue abnormalities. Foot reported separately.
--- NOTE | 2022-04-28 08:24 | XRAY ---
Indication: Pain and swelling. No known injury. Comparison: None 3 nonweightbearing views left foot demonstrates osteopenia, mild talotibial degenerative changes, moderate tarsometatarsal degenerative changes, advanced 1st MTP degenerative changes, heel spurs, and pes planus. No other bony, articular, or soft tissue abnormalities. Ankle reported separately.
== END 2022-04-27 22:20 | disposition home or self-care (01) ==
LOC: ED 21:35
DX: M77.52 Other enthesopathy of left foot and ankle (principal); M25.572 Pain in left ankle and joints of left foot; Z79.899 Other long term (current) drug therapy; Z28.310 Unvaccinated for COVID-19
CPT/HCPCS: 73610; 73630; 99282; 99291; A9270-GY

== ENCOUNTER 2023-01-22 05:58 | Day surgery (SDC) | payer MEDICARE, SELFPAY ==
[2023-01-22] MEDS ORDERED: Lactated Ringers 1,000 ML IV SCH (06:30)
[2023-01-22 06:32] VITALS: TEMP 98.2
[2023-01-22] MEDS ORDERED: Lactated Ringers 1,000 ML IV ONE (06:44)
[2023-01-22] MEDS ORDERED: DIPRIVAN 200 MG/20 ML IV ONE ×2 (08:17→08:36)
[2023-01-22] MEDS ORDERED: Xylocaine-Mpf 2% 5 Ml Vial ONE (08:17)
[2023-01-22] MEDS ORDERED: Ephedrine Sulfate 50 MG/ML ONE (08:30)
[2023-01-22 09:31] VITALS: O2SAT 99
[2023-01-22 09:42] VITALS: PULSE 74; RESP 18
[2023-01-22 09:46] VITALS: BP 148/73
--- NOTE | 2023-01-22 11:37 | OP ---
SURGERY DATE/TIME: 01/22/2023 0825 PREOPERATIVE DIAGNOSES: 1) Anemia. 2) Hemorrhoids. POSTOPERATIVE DIAGNOSES: 1) Ascending colon polyp. 2) External hemorrhoids. 3) Diverticulosis. PROCEDURE: Colonoscopy. SURGEON: Gilberto Bowling M.D. ANESTHESIA: MAC by Sigifredo Caruso CRNA. ESTIMATED BLOOD LOSS: Minimal. SPECIMENS: Hot forceps polypectomy from ascending colon polyp. DESCRIPTION OF PROCEDURE: After informed written consent was obtained, the patient was taken to the endoscopy suite. She was placed in left lateral decubitus position and anesthesia was titrated to desired level of consciousness. Digital rectal exam showed normal sphincter tone with external hemorrhoids and no internal lesions. The scope was inserted into the rectum and sequentially the entire colonic mucosa was traversed. The level of cecum was reached and verified with direct visualization of the ileocecal valve. Upon withdrawal there was a sessile polyp in the cecum and colon near the hepatic flexure which was grasped with forceps cauterized and removed in its entirety with no bleeding following the removal. The remainder of the examination showed scattered diverticulosis but no other mucosal lesions. Prior to withdrawal retroflexion was performed and showed no obvious internal lesions. The scope was removed. The patient was transferred to the recovery room in good condition.
== END 2023-01-22 09:45 | disposition home or self-care (01) ==
LOC: SDC 05:58
PROVIDERS: ATTEND Family Medicine
DX: D12.2 Benign neoplasm of ascending colon (principal); D64.9 Anemia, unspecified; K64.4 Residual hemorrhoidal skin tags; K57.30 Diverticulosis of large intestine without perforation or abscess without bleeding
CPT/HCPCS: J2704

== ENCOUNTER 2023-11-04 05:49 | Day surgery (SDC) | payer MEDICARE ==
[2023-11-04] MEDS: Lactated Ringers 1,000 ML IV SCH (06:28)
[2023-11-04 06:30] LABS: Absolute Neutrophil Ct (ANC) 8.09 x10^3/uL (1.56-6.13); BASOPHIL % 0.3 % (0.1-1.2); Basophil (Absolute #) 0.04 x10^3/uL (0.01-0.08); Eosinophil (Absolute #) 0.23 x10^3/uL (0.04-0.36); Hematocrit 33.3 % (34.1-44.9); Hemoglobin 10.5 g/dL (11.2-15.7); IMMATURE GRAN # 0.06 x10^3u/L (0.001-0.031); IMMATURE GRAN % 0.5 % (0.001-0.429); Lymphocyte (Absolute #) 2.57 x10^3/uL (1.18-3.74); Lymphocytes % 22.2 % (19.3-51.7); Mean Cell Volume 94.3 fL (79.4-94.8); Mean Corpuscular Hemoglobin 29.7 pg (25.6-32.2); Mean Corpuscular Hgb Concent. 31.5 g/dL (32.2-35.5); Monocyte (Absolute #) 0.57 x10^3/uL (0.24-0.86); Monocytes % 4.9 % (4.7-12.5); Neutrophil % 70.1 % (34.0-71.1); Platelet Count 200 x10^3/uL (182-369); Red Blood Count 3.53 x10^6/uL (3.93-5.22); Red Cell Distribution Width 15.4 % (11.7-14.4); White Blood Count 11.6 x10^3/uL (3.98-10.04)
[2023-11-04 06:35] VITALS: RESP 18; TEMP 97.9
[2023-11-04] MEDS ORDERED: CLINDAMYCIN-D5W 900 MG/50 ML*** 900 MG/50 ML BAG IV ONE ×2 (06:44→06:46)
[2023-11-04 06:47] LABS: ALBUMIN 4.1 g/dL (3.5-5.0); ANION GAP 12.6 MEQ/L (5-15); BILIRUBIN,TOTAL 0.7 mg/dL (0.2-1.3); Calcium 9.7 mg/dL (8.4-10.2); Creatinine 1 1.51 mg/dL (0.52-1.04); EST GLOMERULAR FILTRATION RATE 35.2 ML/MIN; Potassium 4.6 mmol/L (3.5-5.1); Total Protein 7.2 g/dL (6.3-8.2)
[2023-11-04] MEDS ORDERED: Quelicin Fliptop 200 MG/10 ML ONE (07:45)
[2023-11-04] MEDS ORDERED: DIPRIVAN 200 MG/20 ML IV ONE (07:47)
[2023-11-04] MEDS ORDERED: Xylocaine-Mpf 2% 5 Ml Vial ONE (07:47)
[2023-11-04] MEDS ORDERED: SUBLIMAZE 100 MCG/2 ML ONE (07:48)
[2023-11-04] MEDS ORDERED: Zofran 4 MG/2 ML VIAL ONE (08:14)
[2023-11-04 09:27] VITALS: BP 152/62; PULSE 63; O2SAT 96
--- NOTE | 2023-11-06 13:46 | OP ---
SURGERY DATE/TIME: 11/04/2023 [id number] PREOPERATIVE DIAGNOSIS: Postmenopausal bleeding and thickened endometrium. POSTOPERATIVE DIAGNOSIS: Postmenopausal bleeding, thickened endometrium, endometrial polyps, and submucosal fibroid. PROCEDURE: Hysteroscopy, dilated and curettage with MyoSure resection of submucosal fibroid, and removal of endometrial polyps. SURGEON: Brayden Carlton DO. PHYSICIAN EXECUTIVE: Flaquita Bonilla. ANESTHESIA: General. ESTIMATED BLOOD LOSS: Minimal. COMPLICATIONS: None. FINDINGS: The risks, benefits, indications, and alternatives of the procedure were reviewed with the patient prior to the procedure. Patient understood the risks of infection, bleeding, bowel injury, bladder injury, uterine perforation, pelvic infection, thromboembolic disorder associated with this surgery and desired to have this surgery as a possible means to alleviate her current medical condition. DESCRIPTION OF PROCEDURE AND FINDINGS: At this point, patient was taken to the operating room, given general sedation, placed in the dorsal lithotomy position, prepped and draped in the usual sterile fashion. A weighted speculum was then placed in the patient's vagina, and the anterior lip of the cervix was grasped with a single-tooth tenaculum. Endocervical dilators were advanced through the endocervical canal as a means to dilate the cervix, and a 5 mm hysteroscope was then placed into the fundal region where visualization appeared for her to have a submucosal fibroid approximately 2 x 2 cm in dimension in the fundal region with 2 endometrial polyps located posteriorly approximately 2 x 2 cm in dimension, that were both of similar size. From this point, the MyoSure instrument was then placed in through the channel of the hysteroscope and the MyoSure was used to resect the submucosal fibroid. It was done so without complication, as well as resect the 2 endometrial polyps that were located posteriorly and was done so without complication with no bleeding that was noted. After complete resection with the MyoSure, there were 700 mL of saline that were inserted and accounted for during the procedure. From this point, after removal of the hysteroscope, a curette was subsequently placed into the fundal region where curettage was performed in all quadrants of this region, retrieving a mild to moderate amount of endometrial tissue. From this point, after completion, there was no bleeding that was noted. From this point, all instruments were removed from the patient's vaginal region. The patient was then taken out of the dorsal lithotomy position, was taken out of anesthesia, and was then taken to the recovery room in stable condition. All instruments and laps were accounted for x2.
== END 2023-11-04 09:30 | disposition home or self-care (01) ==
LOC: SDC 05:49
PROVIDERS: ATTEND Obstetrics & Gynecology
DX: N95.0 Postmenopausal bleeding (principal); R93.89 Abnormal findings on diagnostic imaging of other specified body structures; N84.0 Polyp of corpus uteri; D25.0 Submucous leiomyoma of uterus
CPT/HCPCS: 36415; 80053; 85025; J0330; J2405; J2704; J3010

== ENCOUNTER 2023-11-19 10:33 | Day surgery (SDC) | payer MEDICARE, SELFPAY ==
[2011-09-28 09:51] VITALS: BP 180/94
[2023-11-19] MEDS ORDERED: BUPIVACAINE 0.5% VIAL IJ ONE (10:34)
[2023-11-19] MEDS ORDERED: Depo-Medrol 40 MG/ML IM ONE (10:34)
[2023-11-19] MEDS ORDERED: DIPRIVAN 200 MG/20 ML IV ONE (12:12)
[2023-11-19] MEDS ORDERED: Lactated Ringers 1,000 ML IV ONE (12:48)
--- NOTE | 2023-11-19 15:03 | XRAY ---
Indication: Right hip and greater trochanter bursa injection. Intraoperative fluoroscopy provided for 15 seconds. 2 digital spot image submitted for interpretation demonstrates needle tip projecting lateral to right femur neck. Second needle tip lateral to greater trochanter. Small amount of contrast injected for both needle tip placement. Correlate with intraoperative findings/report.
--- NOTE | 2023-11-19 16:56 | XRAY ---
15 seconds of fluoroscopy was used in surgery for a right intra-articular hip and greater trochanteric bursa injection.
== END 2023-11-19 12:42 | disposition home or self-care (01) ==
LOC: SDC-PAIN 10:33
PROVIDERS: ATTEND Psychiatry & Neurology Pain Medicine
DX: M16.11 Unilateral primary osteoarthritis, right hip (principal); M70.61 Trochanteric bursitis, right hip
CPT/HCPCS: 20610; 73502; 77002; J2704; Q9966

== ENCOUNTER 2024-03-25 12:58 | Day surgery (SDC) | payer MEDICARE ==
[2011-09-28 09:51] VITALS: BP 180/94
[2024-03-25] MEDS ORDERED: Depo-Medrol 40 MG/ML IM ONE (12:59)
[2024-03-25] MEDS ORDERED: BUPIVACAINE 0.5% VIAL IJ ONE (12:59)
[2024-03-25] MEDS ORDERED: propofoL IV ONE (14:39)
[2024-03-25] MEDS ORDERED: Sodium Chloride 0.9% 250 ML 250 ML IV ONE (15:11)
--- NOTE | 2024-03-25 16:34 | XRAY ---
Indication: Right hip and greater trochanter bursa injection. Intraoperative fluoroscopy provided for 26 seconds. 2 digital spot images submitted for interpretation demonstrates needle tip projecting lateral to right femur neck. Second needle tip lateral to greater trochanter. Small amount of contrast injected for both needle tip placement. Correlate with intraoperative findings/report.
--- NOTE | 2024-03-25 16:38 | XRAY ---
26 seconds of fluoroscopy was used in surgery for a right intra-articular hip and greater trochanteric bursa injection.
== END 2024-03-25 15:35 | disposition home or self-care (01) ==
LOC: SDC-PAIN 12:58
PROVIDERS: ATTEND Psychiatry & Neurology Pain Medicine
DX: M16.11 Unilateral primary osteoarthritis, right hip (principal); M70.61 Trochanteric bursitis, right hip
CPT/HCPCS: 20610; 73502; 77002; J2704